=== PATIENT | male | born 1955 | race Caucasian/White ===

== ENCOUNTER 2021-07-29 14:31 | Outpatient (CLI) | payer OTHER, SELFPAY ==
--- NOTE | 2021-07-29 | ECG_ITS ---
Measurements Intervals [place] Rate: 60 P: 42 LA: 195 QRS: -26 QRSD: 187 T: 38 QT: 422 QTc: 422 Interpretive Statements SINUS RHYTHM RIGHT BUNDLE BRANCH BLOCK ABNORMAL ECG Electronically Signed On 07-29-2021 15:11:13 CDT by Marshal Murry D.O.
[2021-07-29 15:08] LABS: Albumin Level 4.1 g/dL (3.5-5.1); Estimated Glomerular Filt Rate > 60; Glucose 104 mg/dL (65-110)
[2021-07-29 15:11] LABS: Hemoglobin A1C 4.7 % (<5.7)
[2021-07-29 16:01] LABS: Urine Cotinine NEGATIVE
== END 2021-07-29 14:32 | disposition home or self-care (01) ==
LOC: ANHLAB 14:34
PROVIDERS: PCP Family Medicine Sports Medicine; Visit Provider Orthopaedic Surgery
DX: M17.12 Unilateral primary osteoarthritis, left knee (principal); Z01.818 Encounter for other preprocedural examination; I10 Essential (primary) hypertension; E78.5 Hyperlipidemia, unspecified; I45.10 Unspecified right bundle-branch block
CPT/HCPCS: 80307; 82040; 82565; 82947; 83036; 93005

== ENCOUNTER 2021-08-07 14:48 | Outpatient (CLI) | payer OTHER, SELFPAY ==
--- NOTE | ~2021-08-07 | CT_ITS ---
EXAMINATION: CT LE LT wo con DATE: 08/07/2021 15:25 INDICATION: Unilateral primary osteoarthritis of the left knee TECHNIQUE: High resolution computed tomography (CT) of the left lower limb from the hip through the f oot was performed without intravenous contrast. Additional sagittal and coronal reconstructions were performed. Automated exposure control and iterative reconstruction technique were employed. The dose- length product was 1950.71 mGy-cm. COMPARISON: None FINDINGS: Minimal left lateral patellar tilt and subluxation. Alignment is otherwise normal. No fracture. Chond rocalcinosis at the medial and lateral compartments of the knee including the menisci. Moderate joint space narrowing of the lateral compartment of the left knee and at the partially visualized medial c ompartment of the right knee although severity of joint space narrowing can be underestimated on nonw eightbearing imaging. There is additional mild joint space during at the medial compartment of the le ft knee and at the lateral aspect of the patellofemoral compartment. No left knee joint effusion. The re is an approximately 4 x 3 x 2 cm ganglion cyst in the recess posterior to the intercondylar notch. Additional chondrocalcinosis at the bilateral ankles. Mild osteoarthritis of the left hip and sacroil iac joints as well as at the left ankle and multiple joints in the bilateral feet and ankles. Heterot opic ossification along the bilateral medial malleoli which could be either enthesopathic or sequela of old deltoid ligament sprains. Additional small amount of enthesopathic ossification at the hamstri ng tendon origin at the left ischial tuberosity. Asymmetric moderate fatty atrophy of the left soleus muscle. Extensive scattered vascular calcifications throughout the arteries of the bilateral lower l imbs. Small fat-containing left inguinal hernia. No pathologically enlarged left pelvic or inguinal l ymphadenopathy. IMPRESSION: 1. Chondrocalcinosis and at least moderate lateral compartment predominant tricompartmental osteoarth ritis at the left knee although severity of joint space narrowing can be underestimated on nonweightb earing imaging. 2. Asymmetric moderate fatty atrophy of the left psoas muscle. Reviewed, dictated and finalized at location A. IMPRESSION: 1. Chondrocalcinosis and at least moderate lateral compartment predominant tric ompartmental osteoarthritis at the left knee although severity of joint space n arrowing can be underestimated on nonweightbearing imaging. 2. Asymmetric moderate fatty atrophy of the left psoas muscle.
== END 2021-08-07 14:49 | disposition home or self-care (01) ==
PROVIDERS: PCP Family Medicine Sports Medicine; Visit Provider Orthopaedic Surgery
DX: M17.12 Unilateral primary osteoarthritis, left knee (principal)
CPT/HCPCS: 73700

== ENCOUNTER 2021-10-09 11:49 | Outpatient (CLI) | payer OTHER, SELFPAY ==
[2021-10-09 12:59] LABS: Basophils Absolute Auto 0.1 K/mm3 (0.0-0.1); Basophils Percent Auto 0.8 % (0.2-1.2); Eosinophils Absolute Auto 0.1 K/mm3 (0-0.3); Eosinophils Percent Auto 2.4 % (0-4.4); Hematocrit 32.3 % (42.0-52.0); Hemoglobin 11.3 g/dL (14.0-18.0); Immature Granulocyte Absolute 0.02 K/mm3 (0.00-0.031); Immature Granulocyte Percent A 0.3 % (0-0.5); Lymphocytes Absolute Auto 1.28 K/mm3 (0.9-3.2); Lymphocytes Percent Auto 21.6 % (18.3-44.2); Mean Corpuscular Hemoglobin 35.6 pg (26-34); Mean Corpuscular Volume 101.9 fl (80-100); Mean Platelet Volume 8.6 fl (7.4-10.4); Monocytes Absolute Auto 0.7 K/mm3 (0.1-0.6); Monocytes Percent Auto 11.1 % (2.6-8.5); Neutrophils Absolute Auto 3.8 K/mm3 (1.3-6.7); Neutrophils Percent Auto 63.8 % (45.5-73.1); Platelet Count Result 242 k/mm3 (150-375); Red Blood Count 3.17 M/mm3 (4.6-6.20); Red Cell Distribution Width 11.7 % (11.5-14.5); White Blood Count 5.9 K/mm3 (4.5-10.0)
[2021-10-09 13:10] LABS: Albumin Level 4.5 g/dL (3.5-5.1)
[2021-10-09 13:13] LABS: Anion Gap 5 mmol/L (8-16); Blood Urea Nitrogen 15 mg/dL (9-20); Calcium 8.4 mg/dL (8.4-10.2); Carbon Dioxide 29 mmol/L (22-30); Chloride 91 mmol/L (98-107); Estimated Glomerular Filt Rate 51; Glucose 89 mg/dL (65-110); Potassium 4.9 mmol/L (3.4-5.0); Sodium 125 mmol/L (137-145)
[2021-10-09 13:32] LABS: Urine Cotinine NEGATIVE
[2021-10-09 14:06] LABS: Hemoglobin A1C 4.7 % (<5.7)
== END 2021-10-09 11:50 | disposition home or self-care (01) ==
PROVIDERS: Anesthesiology; PCP Family Medicine Sports Medicine; Visit Provider Orthopaedic Surgery
DX: M17.12 Unilateral primary osteoarthritis, left knee (principal); Z79.899 Other long term (current) drug therapy; Z01.818 Encounter for other preprocedural examination
CPT/HCPCS: 36415; 80048; 80307; 82040; 83036; 85025; 87081

== ENCOUNTER 2021-10-21 14:26 | Outpatient (CLI) | payer OTHER, SELFPAY ==
[2021-10-21 14:49] LABS: Sodium 125 mmol/L (137-145)
== END 2021-10-21 14:27 | disposition home or self-care (01) ==
PROVIDERS: Anesthesiology; PCP Family Medicine Sports Medicine; Visit Provider Orthopaedic Surgery
DX: E87.1 Hypo-osmolality and hyponatremia (principal); Z01.818 Encounter for other preprocedural examination
CPT/HCPCS: 36415; 84295

== ENCOUNTER 2021-10-29 00:04 | Day surgery (SDC) | payer OTHER, SELFPAY ==
--- NOTE | 2021-10-09 11:54 | PC.NURSE ---
Report to the Outpatient Waiting Room, entrance under the green pavilion located off [facility], at time _0600_ on date _10/29/21_. OR Time: _0730_. - You and your visitor will be asked a series of questions to screen for COVID 19 for your protection. - A mask is required within the hospital. - Only one visitor is allowed at this time. - The patient visitor is requested to leave or wait in car when not with patient. -PACK A SMALL OVERNIGHT BAG AND LEAVE IN THE CAR ALONG WITH YOUR WALKER, VISITING HOURS ARE 10AM-8PM, PARK IN FRONT PARKING LOT AND USE MAIN HOSPITAL ENTRANCE Patients may have clear liquids (water, carbonated beverages, clear teas, apple juice) until 3 hours prior to surgery ( 0430 AM) with a maximum of 20 ounces. - No food from midnight until time of surgery Take the following medications with a SIP of water the morning of surgery: _AMLODIPINE, METOPROLOL,_ Medications to discontinue per physician __DICLOFENAC 7 DAYS PRIOR TO SURGERY, Date to take last dose 10/21/21__ Please no make-up, nail new zealander, hairspray, perfume, deodorant, or body powder the day of surgery. No jewelry (including any body piercings) or valuables the day of surgery, leave them at home. Please take a shower or bath the night before, or the morning of, surgery with an antibacterial soap. Wear comfortable, loose fitting clothing. - Jewelry must be removed prior to entering the operating room. Rings and piercings that are not removed may be cut off. - The hospital will not accept responsibility for valuables. - Please leave all valuables, including medications, at home the day of surgery. If you are going home after surgery, a licensed fire truck driver must drive you home. - NO public transportation without another adult. - We recommend that an adult stay with you for 24 hours following discharge. - We also recommend that you do not drive, make important decision, drink alcoholic beverages, or take any drugs that were not prescribed by your health care provider for at least 24 hours after your discharge time. Follow any additional instructions given to you from your surgeon. If you or anyone in your household have experienced Covid symptoms in the past week, please notify your surgeon or the nurse liaison at the phone number below for possible testing. Instructions given to ___PT and asked if any additional questions and then verbalized understanding. Patient advised to call surgeon office or pre surgery nurse liaison [phone] if any additional questions.
[2021-10-09 12:13] VITALS: BP 178/80; PULSE 56; RESP 20; TEMP 37.3; O2SAT 100; BMI 22.9
[2021-10-29] VITALS (15 sets, daily range): BP systolic 127–180; BP diastolic 73–91; PULSE 54–72; RESP 12–17; TEMP 36.1–36.9; O2SAT 95–100
--- NOTE | ~2021-10-29 | XR_ITS ---
EXAMINATION: XR knee LT 2V DATE: 10/29/2021 10:11 INDICATION: Total left knee arthroplasty. Postop. TECHNIQUE: 2 views of left knee were obtained. COMPARISON: CT 08/07/2021 FINDINGS: There is a total left knee arthroplasty without patellar resurfacing in near-anatomic align ment. No fracture. There is gas in the knee joint and soft tissues, consistent with recent surgery. IMPRESSION: 1. Total left knee arthroplasty in near-anatomic alignment. Reviewed, dictated and finalized at location A.
[2021-10-29] MEDS: ACETAMINOPHEN 500 MG TABLET 1000 MG PO (06:30)
[2021-10-29] MEDS: LACTATED RINGERS 1,000 ML 30 ML IV CONT ×2 (06:39→09:58)
[2021-10-29] MEDS: TRANEXAMIC ACID 1,000MG/ISO100 1,000 MG/100 ML BAG 200 MG IVPB (07:03)
--- NOTE | 2021-10-29 07:08 | WPDANESEPPF ---
Anes - Initial Pre Proc Eval Procedure: Operation Date: 10/29/21 07:30 Proposed Procedures p Left Custom Total Knee Arthroplasty - Wally Lindquist MD Date/Time: 10/29/21 07:08 Surgeon: Wally Lindquist MD Pre Op Diagnosis: primary oa left knee Patient Data Age: 65 Gender: M Height: 1.83 m Weight: 75 kg Last Vital Signs Temp 36.7 C 10/29/21 06:46 Pulse 64 10/29/21 06:46 Resp 16 10/29/21 06:46 BP 172/76 H 10/29/21 06:46 Pulse Ox 100 10/29/21 06:46 O2 Del Method Room Air 10/29/21 06:46 Allergies Allergy/AdvReac Type Severity Reaction Status Date / Time No Known Allergies Allergy Verified 10/29/21 06:20 Home Medications Medication Instructions Recorded Confirmed Type amlodipine 5 mg tablet 5 mg PO QAM 07/02/21 10/29/21 History furosemide 20 mg tablet 10 mg PO QAM 07/02/21 10/29/21 History losartan 100 mg tablet 100 mg PO QAM 07/02/21 10/29/21 History metoprolol tartrate 50 mg tablet 50 mg PO QAM 07/02/21 10/29/21 History diclofenac sodium 75 mg 75 mg PO BID 10/09/21 10/29/21 History tablet,delayed release ezetimibe 10 mg tablet 10 mg PO QAM 10/09/21 10/29/21 History mupirocin 2 % topical ointment 1 applic topical TID #15 grams 10/16/21 Rx sulfamethoxazole 800 1 tablet PO Q12H #10 tabs 10/16/21 Rx mg-trimethoprim 160 mg tablet (Bactrim DS) Patient hx anesthesia problems: none Family hx anesthesia problems: none Results Review: All pre-operative results and documents have been reviewed as part of the pre-operative evaluation. [facility] Past Medical History Medical History Hyperlipidemia Hypertension Family History Family History Father Cancer Social History Social History Smoking status: Never smoker Second hand tobacco smoke exposure: No Additional smoking assessment comments: PT DENIES ALL FORMS OF TOBACCO USE Alcohol intake: current Drinks per week: 35 Alcohol use details: STATES 4-5 BEERS DAILY Substance use: never Substance use type: does not use Living arrangements: with family Spiritual care concerns: No Anes - Eval Final PreProcedure Day of Procedure 10/29/21 07:08 Patient weight: normal Heart: regular rate and rhythm Lungs: clear to auscultation Airway: Mallampati scale class II Neurological: alert and oriented Last oral intake: >/= 8 hours ASA classification: II Emergent: no Anesthetic plan: proceed Anesthesia type and monitoring: general LMA and standard monitoring Results Review: All pre-operative results and documents have been reviewed as part of the pre-operative evaluation. Informed Consent: The patient's anesthetic plan and its attendant risks and benefits were discussed with the patient/family/POA. Questions were solicited and answers provided to the satisfaction of the patient/family/POA.
--- NOTE | 2021-10-29 07:22 | WPDHPUPDATE1 ---
History and Physical Update Update Date/Time: 10/29/21 07:22 History and Physical has been reviewed, including an updated exam of the patient. There are NO changes in the patient's condition. Risks, benefits, and alternatives have been discussed and questions answered. Patient agrees to proceed with procedure.
--- NOTE | 2021-10-29 07:28 | WPDANESPNB ---
Anes - Peripheral Nerve Block Date/Time: 10/29/21 07:28 I have discussed with the patient/family/POA the placement of a peripheral nerve block for post-operative pain management, including associated risks, benefits, complications, and side effects. Alternative methods of post-operative analgesia were detailed. Questions were solicited and answers provided to the satisfaction of the patient/family/POA. Time-Out: A pre-procedural Time-Out was completed immediately before starting the procedure and confirmed: Patient Identification, Site, Procedure, Patient Position and the Availability of Requisite Equipment. Clinical Indications: Acute post-operative pain management requested by the operative surgeon. Nerve Block Insertion Note Anes-nerve block: adductor canal left Patient position: supine Skin prep: chlorhexidine Needle: 22 gauge, stimulating, insulated echogenic needle. Needle length: 80 mm Technique: ultrasound Injectate: bupivacaine 0.5% with epi 5 mcg/ml (30ml no epi) and dexamethasone (mg) (4) Observations: tolerated well Complications: none Procedure start time:: 714 Procedure end time:: 722
[2021-10-29] MEDS: ceFAZolin 2 GM/D5W 50 ML 2 GM/50 ML BAG IVPB ×3 (07:29→23:32)
--- NOTE | 2021-10-29 10:14 | P.OP_ITS ---
Procedure Note - Detailed Date of Procedure 10/29/21 Pre-op Diagnosis primary oa left knee Post-op Diagnosis Same Procedure Performed Total knee arthroplasty, left. Surgeon Wally Lindquist MD [employer] Ad[employer] Representative Moon Kidd PA-C Anesthesia General and Regional (Subsartorial block.) Findings Custom TKA. Excellent bone quality. No releases required. Description of Procedure Preoperative antibiotics were given. The limb was prepped and draped in the usual sterile fashion with a well-padded tourniquet high on the thigh. The limb was exsanguinated and the tourniquet inflated to 300 mmHg during exposure and cementation. A longitudinal incision was created just medial to the patella. A trivector approach to the knee was performed. Arthrotomy was taken down through the joint capsule. No significant releases were initially taken. The femur was exposed and the F1 jig was applied. The coring tool was used to remove the cartilage for the F2 jig to sit flush with the bone. The jig was pinned and the distal cut carefully taken. Caliper measurements confirmed appropriate bony resections according to the preoperative templated plan. The F4 cutting jig for the femur was applied, at the standard rotation. The AP and anterior chamfer cuts were taken. The F5 jig was applied and the posterior chamfer cuts were taken. The tibia was prepared using the T1 jig, after removing cartilage for the jig contact points. Proper alignment was checked with the alignment warner. The tibia was cut using the T1u guide. Gap balancing was performed. Gap measurements were taken and the knee was trialed. Excellent alignment and soft tissue balancing was confirmed. The posterior cruciate ligament was recessed along the proximal tibia. The patella was denervated. Meniscal remnants were removed. The trial components were assembled. Excellent range of motion and proper soft tissue balancing were confirmed throughout the full range of motion. Patellar tracking was excellent. The knee was copiously irrigated periodically throughout the procedure. The real implants were cemented into position. Excess cement was carefully removed. The wound was closed in layers with interrupted #1 Vicryl suture, 2-0 strata fix suture, 0 strata fix suture, 2-0 strata fix suture. Steri-Strips placed on the skin with the knee flexed. Sterile bulky dressing applied. The patient was brought to the recovery room in stable condition. There were no complications. Physician life science research assistant, Moon Kidd PA-C, required for surgery; including patient positioning, draping, tissue retraction, maintaining instrument pos ition, cement removal, wound closure, and dressing placement. Implants Conformis Custom total knee arthroplasty. Cemented. Cruciate retaining. 6A inser t. Estimated Blood Loss -100.0 Drains No Complications No immediate complications Condition Stable Disposition PACU [facility] Billing Surgery - Charge Forward: Surgery Billing
[2021-10-29] MEDS: fentaNYL CITRATE INJ (*CRX) 100 MCG/2 ML VIAL 25 MCG IV PUSH ×8 (10:24→11:03)
[2021-10-29] MEDS: HYDROmorphone HCL INJ (*CRX) 1 MG/ML SYR IV PUSH (11:06)
--- NOTE | 2021-10-29 11:39 | ADMGEN ---
This patient, Triston Ivan, was admitted to -. Patient/family oriented to hospital policies and general routines including ID bracelet, bed and alarms, visiting hours, pain management, procedures, bathroom and other care routines, personal items, smoking policy, room service/diet, and visiting hours. Information on how to activate the Rapid Response Team has been discussed. Patient/Family are encouraged to report perceived risks to care and to ask questions if they do not understand what they are told or what they should do. Report received from INDIRA Bullard
[2021-10-29] MEDS: oxyCODONE HCL (*CRX) 5 MG TAB IR 10 MG PO ×2 (12:40→23:32)
[2021-10-29] MEDS: ASPIRIN 81 MG ENTERIC TABLET PO (16:18)
[2021-10-29] MEDS: DICLOFENAC SOD 75 MG TABLET.EC PO (16:18)
[2021-10-29] MEDS: SENNA/DOCUSATE SODIUM TABLET 2 TAB PO (16:18)
[2021-10-30 03:25] VITALS: BP 157/90; PULSE 57; RESP 16; TEMP 36.5; O2SAT 100
[2021-10-30] MEDS: ceFAZolin 2 GM/D5W 50 ML 2 GM/50 ML BAG IVPB (06:00)
--- NOTE | 2021-10-30 07:52 | WPDANESPN ---
Anes - Prog Note Post-Op Date/Time: 10/30/21 07:52 Cardiovascular status: normal Respiratory status: normal Airway patency: baseline Mental status: baseline Post-Op hydration status: normal Vital Signs: Last Vital Signs Temp 97.7 F 10/30/21 03:25 Pulse 57 L 10/30/21 03:25 Resp 16 10/30/21 03:25 BP 157/90 H 10/30/21 03:25 Pulse Ox 100 10/30/21 03:25 O2 Del Method Room Air 10/29/21 13:02 O2 Flow Rate 6 10/29/21 10:25 Pain Score (VAS): 05/02 I/O: Intake & Output 10/29/21 10/29/21 10/30/21 15:59 23:59 07:59 Intake Total 773 085 5073 Output Total 0 Balance [phone] Post-procedural complaints: none Patient Feedback: Patient satisfied with anesthetic care.
[2021-10-30 09:16] VITALS: BP 156/80; PULSE 59; RESP 18; TEMP 36.5; O2SAT 100
[2021-10-30] MEDS: polyethylene glycoL 3350 17 GM POWD.PACK PO (09:26)
[2021-10-30 09:27] VITALS: PULSE 59
[2021-10-30] MEDS: ASPIRIN 81 MG ENTERIC TABLET PO (09:27)
[2021-10-30] MEDS: amLODIPine BESYLATE 5 MG TABLET PO (09:27)
[2021-10-30] MEDS: DICLOFENAC SOD 75 MG TABLET.EC PO (09:27)
[2021-10-30] MEDS: predniSONE 5 MG TABLET PO (09:27)
[2021-10-30] MEDS: METOPROLOL TARTRATE 50 MG TAB PO (09:27)
[2021-10-30] MEDS: SENNA/DOCUSATE SODIUM TABLET 2 TAB PO (09:30)
[2021-10-30] MEDS: FAMOTIDINE 20 MG TABLET PO (09:30)
[2021-10-30] MEDS: LOSARTAN POTASSIUM 100 MG TABLET PO (09:30)
[2021-10-30] MEDS: EZETIMIBE 10 MG TABLET PO (09:32)
[2021-10-30] MEDS: FUROSEMIDE 10 MG TABLET PO (09:32)
[2021-10-30] MEDS: oxyCODONE HCL (*CRX) 5 MG TAB IR PO (09:43)
--- NOTE | 2021-10-30 12:00 | P.DS_ITS ---
DS: Admitting Diagnosis Discharge Date 10/30/21 Admitting Diagnosis OA knee Left DS: Discharge Diagnosis Discharge Diagnosis (1) Status post total left knee replacement: Code(s): Z96.652 - Presence of left artificial knee joint Status: Acute Assessment and Plan: Postop day 1: Left total knee arthroplasty. Patient tolerated procedure well. No complications. Pain manageable with pain medication. No numbness or tingling. We had a lengthy discussion regarding postoperative wound care, limitations, expectations, and exercises. Patient shows good understanding. He has had initial physical therapy and is tolerating it well. DVT prophylaxis: 81 mg baby aspirin b.i.d. for 14 days. Pain medication: Percocet. diclofenac. prednisone. Patient has followup appointment with Dr. Lindquist in 3 weeks. DS: Summary Hospital Course Reason for hospitalization: Total knee arthroplasty Hospital Course: Patient tolerated procedure well. Has had initial PT/OT. Status at Discharge Functional status at discharge: uses cane/walker Overall status at discharge: patient is progressing back to baseline Time Spent with Patient Time attestation: Total time spent providing and/or coordinating discharge services: Exam Narrative: 65-year-old male. Resting comfortably in chair. Alert and oriented x3. No acute distress. Wearing compression socks bilaterally. Dressing intact without drainage. Moderate swelling. No ecchymosis. No erythema. No hematoma. Range of motion limited due to pain. Calf nontender. Neurologic status intact. No varicosities. Distal pulses palpable. Discharge Plan Discharge Patient Disposition: Home, Self-Care Discharge Instructions: see green instruction sheets Stand Alone Forms: General Discharge Instructions Follow-up/Referrals: Moon Kidd PA [Physician Client Onboarding Analyst] - Discharge Medications: New aspirin 81 mg tablet,delayed release (DR/EC) 81 mg PO BID 14 Days Qty: 28 0RF prednisone 5 mg tablet 5 mg PO DAILY 21 Days Qty: 21 0RF oxycodone-acetaminophen 5-325 mg tablet 1 - 2 tablet PO Q4-6H MDD 6 PRN (Reason: pain) Qty: 30 0RF Continued losartan 100 mg tablet 100 mg PO QAM furosemide 20 mg tablet 10 mg PO QAM amlodipine 5 mg tablet 5 mg PO QAM metoprolol tartrate 50 mg tablet 50 mg PO QAM diclofenac sodium 75 mg tablet,delayed release (DR/EC) 75 mg PO BID ezetimibe 10 mg Tablet 10 mg PO QAM mupirocin 2 % ointment 1 applic topical TID Qty: 15 0RF Rx Instructions: Instruct patient to start using medication on 10/24/21. Thank you.
== END 2021-10-30 12:45 | disposition home or self-care (01) ==
LOC: ANHSURGERY 07:24 → ANH2MED 11:49
PROVIDERS: PCP Family Medicine Sports Medicine; Visit Provider Orthopaedic Surgery
PROC: (CPT 27447; principal; 2021-10-29 07:30)
DX: M17.12 Unilateral primary osteoarthritis, left knee (principal); G89.18 Other acute postprocedural pain; I10 Essential (primary) hypertension; E78.5 Hyperlipidemia, unspecified
CPT/HCPCS: 27447; 64447; 36415; 73560; 84295; 86850; 86900; 86901; 97110; 97116; 97161; 97165; 97530; 97535; A9270; C1713; C1776; J0131; J0171; J0690; J1100; J1170; J1885; J2250; J2270; J2370; J2405; J2704; J2795; J3010; J7120; J7512

== ENCOUNTER 2021-12-08 17:00 | Observation (INO) | payer OTHER, SELFPAY ==
[2021-12-08] VITALS (11 sets, daily range): BP systolic 154–182; BP diastolic 81–101; PULSE 78–106; RESP 16–21; TEMP 36.4; O2SAT 93–100; BMI 24.0
--- NOTE | ~2021-12-08 | XR_ITS ---
EXAM: XR shoulder LT min 2V DATE: 12/08/2021 17:51 HISTORY: pain . COMPARISON: None available. FINDINGS: Decreased mineralization. No fracture or dislocation. No lytic or blastic lesion. Joint sp aces are maintained. No erosion or periosteal change. Soft tissues within normal limits. IMPRESSION: No acute osseous finding in the left shoulder. Reviewed, dictated and finalized at location K.
--- NOTE | ~2021-12-08 | US_ITS ---
EXAMINATION:US venous doppler LE LT INDICATION:Left lower extremity edema status post recent surgery TECHNIQUE: Multiple grayscale, color flow and Doppler images of the left lower extremity deep venous systems were obtained and reviewed. COMPARISON:No prior studies for comparison. FINDINGS: The common femoral, superficial femoral and popliteal veins demonstrate normal respiratory variation, augmentation and compressibility. Color flow is also seen within the posterior tibial, pe roneal, greater saphenous and profunda veins. IMPRESSION: 1: No lower extremity deep venous thrombosis. Reviewed, dictated and finalized at location A.
--- NOTE | ~2021-12-08 | CT_ITS ---
EXAMINATION: CT brain wo con DATE: 12/08/2021 18:21 INDICATION: seizure . TECHNIQUE: Computed tomography (CT) of the head was performed without intravenous contrast. The mA wa s adjusted according to patient size. Iterative reconstruction technique was employed. The dose-lengt h product was 605.33 mGy-cm. COMPARISON: 08/13/2018 FINDINGS: No acute intracranial hemorrhage or extra-axial fluid collection. No hydrocephalus, mass, or herniation. No acute ischemic infarct. Unremarkable dural venous sinus attenuation. No acute osseous abnormality. Bilateral maxillary mucosal thickening. Trace bilateral mastoid effusions. Moderate atrophy and chronic white matter change. Atherosclerotic intracranial calcification. Bilater al lens replacements. IMPRESSION: No acute intracranial process. Reviewed, dictated and finalized at location K.
--- NOTE | ~2021-12-08 | XR_ITS ---
EXAMINATION: XR chest 1V portable Exam Date/Time: 12/08/2021 17:40 CDT HISTORY: seizure Comparison: 08/13/2018. RESULT: Lines, tubes, and devices: None. Lungs and pleura: Clear. Cardiomediastinal silhouette: Stable. Other: No acute osseous or upper abdominal finding. IMPRESSION: No acute cardiopulmonary process. Reviewed, dictated and finalized at location K.
--- NOTE | ~2021-12-08 | MR_ITS ---
EXAMINATION: MR brain/brain stem wo/w con DATE: 12/09/2021 11:39 INDICATION: Seizure. TECHNIQUE: Magnetic resonance imaging (MRI) of the brain and brainstem was performed without and with 16 mL MultiHance intravenous contrast. COMPARISON: Head CT 12/08/2021 FINDINGS: There are scattered areas of nonspecific increased T2-weighted signal intensity in the cere bral white matter. There is no intracranial hemorrhage, acute infarction, or abnormal intracranial ma ss lesion. The ventricles are normal in size. There are small bilateral mastoid effusions. There is m ild mucosal thickening in the paranasal sinuses. There are likely changes of ocular lens replacement surgeries. IMPRESSION: 1. Moderate nonspecific cerebral white matter disease, which likely represents chronic small vessel i schemic disease. Reviewed, dictated and finalized at location A. IMPRESSION: 1. Moderate nonspecific cerebral white matter disease, which likely represents chronic small vessel ischemic disease.
--- NOTE | 2021-12-08 17:11 | ECG_ITS ---
Measurements Intervals [place] Rate: 88 P: 26 MS: 208 QRS: -38 QRSD: 173 T: 26 QT: 387 QTc: 469 Interpretive Statements SINUS RHYTHM ATRIAL PREMATURE COMPLEXES LEFT AXIS DEVIATION RIGHT BUNDLE BRANCH BLOCK BASELINE ARTIFACT- I, II, AVR, AVF ABNORMAL ECG COMPARED TO ECG 07/29/2021 15:08:44 LEFT-AXIS DEVIATION NOW PRESENT Electronically Signed On 12-08-2021 21:47:35 CDT by Marshal Murry D.O.
--- NOTE | 2021-12-08 17:21 | ED.SEIZURE ---
HPI - Seizure General Chief Complaint: Seizure <Ann Strauss MD - Last Filed: 12/08/21 19:06> Stated Complaint: Seizure <Ann Strauss MD - Last Filed: 12/08/21 19:06> Time Seen by Provider: 12/08/21 17:09 <Ann Strauss MD - Last Filed: 12/08/21 19:06> Source: patient and family <Ann Strauss MD - Last Filed: 12/08/21 19:06> Mode of arrival: EMS <Ann Strauss MD - Last Filed: 12/08/21 19:06> History of Present Illness HPI Narrative: This is a 65 year old male with history of hypertension and hyperlipidemia who presents for evaluation of new onset seizure. Patient states he was sitting outside and that is all he remembers. His family states patient was seen sitting up and he started foaming at the mouth and seizing. It is reported seizure last approximately 2 minutes. They laid patient on the ground and he was confused until he arrived at ER. Patient did bite his tongue , and he is complaining of left shoulder pain. Patient had left knee replacement performed 1 month ago and he has been doing well. No seizure history. <Ann Strauss MD - Last Filed: 12/08/21 19:06> Related Data Home Medications: Home Medications Medication Instructions Recorded Confirmed amlodipine 5 mg tablet 5 mg PO QAM 07/02/21 11/20/21 furosemide 20 mg tablet 10 mg PO QAM 07/02/21 11/20/21 losartan 100 mg tablet 100 mg PO QAM 07/02/21 11/20/21 metoprolol tartrate 50 mg tablet 50 mg PO QAM 07/02/21 11/20/21 diclofenac sodium 75 mg 75 mg PO BID 10/09/21 11/20/21 tablet,delayed release ezetimibe 10 mg tablet 10 mg PO QAM 10/09/21 11/20/21 <Ann Strauss MD - Last Filed: 12/08/21 19:06> Allergies/Adverse Reactions: Allergies Allergy/AdvReac Type Severity Reaction Status Date / Time No Known Allergies Allergy Verified 12/08/21 17:10 <Ann Strauss MD - Last Filed: 12/08/21 19:06> Review of Systems Review of Systems: All systems reviewed & are unremarkable except as noted in HPI and below <Ann Strauss MD - Last Filed: 12/08/21 19:06> Constitutional: Constitutional: Denies chills, Denies fatigue and Denies fever(s) <Ann Strauss MD - Last Filed: 12/08/21 19:06> Cardiovascular: Cardiovascular: Denies chest pain and Denies rapid heart rate <Ann Strauss MD - Last Filed: 12/08/21 19:06> Respiratory: Respiratory: Denies chest congestion and Denies cough <Ann Strauss MD - Last Filed: 12/08/21 19:06> Gastrointestinal: Gastrointestinal: Denies abdominal pain, Denies nausea and Denies vomiting <Ann Strauss MD - Last Filed: 12/08/21 19:06> Neurologic: Denies headache(s) <Ann Strauss MD - Last Filed: 12/08/21 19:06> [facility] Past Medical History Medical History: Medical History (Updated 12/08/21 @ 19:50 by Merlene Moore PA-C) Alcohol abuse Chronic hyponatremia Gout Hyperlipidemia Hypertension <Ann Strauss MD - Last Filed: 12/08/21 19:06> Surgical History Surgical History: Surgical History (Updated 12/08/21 @ 19:50 by Merlene Moore PA-C) History of arthroplasty of left knee History of cardiac catheterization History of colonoscopy History of oral surgery Status post total left knee replacement <Ann Strauss MD - Last Filed: 12/08/21 19:06> Family History Family History: Family History Father Cancer <Ann Strauss MD - Last Filed: 12/08/21 19:06> Social History Social History: Social History Smoking status: Never smoker Smokeless tobacco user: chewing tobacco Second hand tobacco smoke exposure: No Additional smoking assessment comments: PT DENIES ALL FORMS OF TOBACCO USE Alcohol intake: current Drinks per week: 30 Alcohol use details: STATES 4-5 BEERS DAILY Substance use: never Substance use type: does not use Spirit
[2021-12-08] MEDS: SODIUM CHLORIDE 0.9% IV 1,000 ML 999 ML IV CONT (17:50)
[2021-12-08 17:52] LABS: Basophils Absolute Auto 0.1 K/mm3 (0.0-0.1); Basophils Percent Auto 0.8 % (0.2-1.2); Eosinophils Absolute Auto 0.3 K/mm3 (0-0.3); Eosinophils Percent Auto 3.2 % (0-4.4); Hematocrit 31.8 % (42.0-52.0); Hemoglobin 11.2 g/dL (14.0-18.0); Immature Granulocyte Percent A 1.3 % (0-0.5); Lymphocytes Absolute Auto 1.85 K/mm3 (0.9-3.2); Lymphocytes Percent Auto 23.5 % (18.3-44.2); Mean Corpuscular HGB Conc 35.2 g/dl (32-36); Mean Corpuscular Hemoglobin 36.2 pg (26-34); Mean Corpuscular Volume 102.9 fl (80-100); Mean Platelet Volume 8.8 fl (7.4-10.4); Monocytes Absolute Auto 0.9 K/mm3 (0.1-0.6); Monocytes Percent Auto 11.9 % (2.6-8.5); Neutrophils Absolute Auto 4.7 K/mm3 (1.3-6.7); Neutrophils Percent Auto 59.3 % (45.5-73.1); Platelet Count Result 228 k/mm3 (150-375); Red Blood Count 3.09 M/mm3 (4.6-6.20); Red Cell Distribution Width 11.9 % (11.5-14.5); White Blood Count 7.9 K/mm3 (4.5-10.0)
[2021-12-08 18:02] LABS: Prothrombin Time 12.3 Seconds (11.1-14.7)
[2021-12-08 18:03] LABS: Ethanol 24 mg/dL (<10); Partial Thromboplastin Time 29.1 SECONDS (22.3-36.8)
[2021-12-08 18:22] LABS: Appearance Urine Clear (Clear); Bilirubin Urine Negative (Negative); Blood Urine Negative (Negative); Color Urine Yellow (Yellow); Glucose Urine UA Negative (Negative); Ketones Urine Trace mg/dL (Negative); Leukocyte Esterase Ur Negative LEU/UL (Negative); Nitrate Urine Negative (Negative); Protein Urine Negative (Negative); Urobilinogen Urine 0.2 mg/dL (<2.0)
[2021-12-08 18:25] LABS: Alanine Aminotransferase 24 U/L (6-50); Albumin Level 4.2 g/dL (3.5-5.1); Alkaline Phosphatase 128 U/L (38-126); Anion Gap 18 mmol/L (8-16); Aspartate Amino Transferase 43 U/L (17-59); Bilirubin,Total 0.7 mg/dL (0.2-1.3); Blood Urea Nitrogen 12 mg/dL (9-20); Calcium 8.2 mg/dL (8.4-10.2); Carbon Dioxide 18 mmol/L (22-30); Chloride 87 mmol/L (98-107); Creatine Kinase 108 U/L (55-170); Estimated Glomerular Filt Rate 55; Glucose 111 mg/dL (65-110); Magnesium 1.6 mg/dL (1.6-2.3); Potassium 3.4 mmol/L (3.4-5.0); Sodium 123 mmol/L (137-145)
[2021-12-08 18:26] LABS: Bacteria Urine Trace /hpf; RBC Urine 0-2 /hpf (0-2); Squamous Epithelial Cell Urine Rare /hpf (Few); WBC Urine 0-3 /hpf
[2021-12-08 18:27] LABS: SARS-CoV-2 RNA PCR Negative
[2021-12-08 18:33] LABS: Add Urine Microscopic? YES
[2021-12-08 18:37] LABS: Troponin I < 0.012 ng/mL (0.000-0.034)
[2021-12-08 18:37] LABS: Amphetamine Screen Urine Negative (Negative); Barbiturate Screen Urine Negative (Negative); Benzodiazepines Screen Urine Negative (Negative); Cannabinoid Screen Urine Negative (Negative); Cocaine Screen Urine Negative (Negative); Methadone Screen Urine Negative (Negative); Opiate Screen Urine Negative (Negative); Phencyclidine Screen Urine Negative (Negative)
--- NOTE | 2021-12-08 19:21 | ED.GENADULT ---
HPI - General Adult General Chief complaint: Seizure Stated complaint: Seizure Time Seen by Provider: 12/08/21 17:09 Source: patient and family Mode of arrival: EMS Related Data Home Medications Medication Instructions Recorded Confirmed amlodipine 5 mg tablet 5 mg PO QAM 07/02/21 11/20/21 furosemide 20 mg tablet 10 mg PO QAM 07/02/21 11/20/21 losartan 100 mg tablet 100 mg PO QAM 07/02/21 11/20/21 metoprolol tartrate 50 mg tablet 50 mg PO QAM 07/02/21 11/20/21 diclofenac sodium 75 mg 75 mg PO BID 10/09/21 11/20/21 tablet,delayed release ezetimibe 10 mg tablet 10 mg PO QAM 10/09/21 11/20/21 Allergies Allergy/AdvReac Type Severity Reaction Status Date / Time No Known Allergies Allergy Verified 12/08/21 17:10 [facility] Past Medical History Medical History (Updated 12/08/21 @ 19:06 by Ann Strauss MD) Hyperlipidemia Hypertension Surgical History Surgical History (Updated 12/08/21 @ 17:29 by Ann Strauss MD) Status post total left knee replacement Family History Family History Father Cancer Social History Social History Smoking status: Never smoker Smokeless tobacco user: chewing tobacco Second hand tobacco smoke exposure: No Additional smoking assessment comments: PT DENIES ALL FORMS OF TOBACCO USE Alcohol intake: current Drinks per week: 30 Alcohol use details: STATES 4-5 BEERS DAILY Substance use: never Substance use type: does not use Spiritual care concerns: No Course Vital Signs Vital signs: Vital Signs Pulse Rate 106 H 12/08/21 17:11 Respiratory Rate 17 12/08/21 17:11 Blood Pressure 164/101 H 12/08/21 17:11 Pulse Oximetry 100 12/08/21 17:11 Pulse Rate 102 H 12/08/21 17:16 Respiratory Rate 16 12/08/21 17:16 Blood Pressure 154/81 H 12/08/21 17:16 Pulse Oximetry 98 12/08/21 17:29 Oxygen Delivery Room Air 12/08/21 17:29 Medical Decision Making Vital Signs Vital Signs: Vital Signs Pulse Rate 106 H 12/08/21 17:11 Respiratory Rate 17 12/08/21 17:11 Blood Pressure 164/101 H 12/08/21 17:11 Pulse Oximetry 100 12/08/21 17:11 Pulse Rate 102 H 12/08/21 17:16 Respiratory Rate 16 12/08/21 17:16 Blood Pressure 154/81 H 12/08/21 17:16 Pulse Oximetry 98 12/08/21 17:29 Oxygen Delivery Room Air 12/08/21 17:29 Lab Data Result diagrams: 12/08/21 17:40 12/08/21 17:40 Labs: Lab Results 12/08/21 12/08/21 12/08/21 Range/Units 17:40 17:40 17:40 WBC 7.9 (4.5-10.0) K/mm3 RBC 3.09 L (4.6-6.20) M/mm3 Hgb 11.2 L (14.0-18.0) g/dL Hct 31.8 L (42.0-52.0) % MCV 102.9 H (80-100) fl MCH 36.2 H (26-34) pg MCHC 35.2 (32-36) g/dl RDW 11.9 (11.5-14.5) % Plt Count 228 (150-375) k/mm3 MPV 8.8 (7.4-10.4) fl Immature Gran % (Auto) 1.3 H (0-0.5) % Neut % (Auto) 59.3 (45.5-73.1) % Lymph % (Auto) 23.5 (18.3-44.2) % [place] % (Auto) 11.9 H (2.6-8.5) % Eos % (Auto) 3.2 (0-4.4) % Baso % (Auto) 0.8 (0.2-1.2) % Lymph # (Auto) 1.85 (0.9-3.2) K/mm3 [place] # (Auto) 0.9 H (0.1-0.6) K/mm3 Eos # (Auto) 0.3 (0-0.3) K/mm3 Baso # (Auto) 0.1 (0.0-0.1) K/mm3 Abs Immat Gran (auto) 0.10 H (0.00-0.031) K/mm3 Absolute Neuts (auto) 4.7 (1.3-6.7) K/mm3 Absolute Nucleated RBC 0.0 (0.0-0.012) K/mm3 Nucleated RBC % 0.0 (0.0-0.2) % PT 12.3 (11.1-14.7) Seconds INR 1.0 APTT 29.1 (22.3-36.8) SECONDS Sodium 123 L (137-145) mmol/L Potassium 3.4 (3.4-5.0) mmol/L Chloride 87 L (98-107) mmol/L Carbon Dioxide 18 L (22-30) mmol/L Anion Gap 18 H (8-16) mmol/L BUN 12 (9-20) mg/dL Creatinine 1.30 (0.7-1.3) mg/dL Estim Creat Clear Calc Not Reportable Estimated GFR 55 L (59 - ) Glucose 111 H (65-110) mg/dL Calcium 8.2 L (8.4-10.2)
[2021-12-08] MEDS: ACETAMINOPHEN 500 MG TABLET 1000 MG PO (19:44)
[2021-12-08] MEDS: SODIUM CHLORIDE 0.9% IV 1,000 ML 125 ML IV CONT (19:44)
--- NOTE | 2021-12-08 19:45 | PM.IMHP ---
H&P: HPI History of Present Illness Date/Time: 12/08/21 19:45 Chief Complaint: Suspected seizure. Narrative: This is a pleasant 65-year-old male with history of alcohol abuse, hypertension, and hyperlipidemia presented to the emergency department via EMS from home for evaluation after a suspected seizure. The patient reports that he was sitting outside and that is really all that he remembers. Family members report that he was sitting in a chair when he started to foam at the mouth followed by seizure-like activity which lasted for about 2 minutes. He seemed to be postictal initially and there was evidence of tongue bite however there was no mention of incontinence. On arrival to the emergency department he was complaining of pain in the left shoulder and diffuse muscle aches. CT of the head, shoulder x-ray, and chest x-ray were reviewed and they were unremarkable. Pertinent labs include a sodium of 123, potassium 3.4, chloride 87, carbon dioxide 18, anion gap 18, and CK 108. His urine drug screen was negative. Alcohol level was 24. He has since been admitted overnight for observation, MRI, and EEG in a.m.. At the time my evaluation he is alert and oriented and has no specific complaints. Review of Systems Review of Systems: Twelve systems were reviewed. He has no history of seizure. He has not been started on any recent medications. He drinks at least 6 beers a night and he has not been without alcohol recently. He does not sleep well, is up 4 to 5 times each night to urinate. He denies orthopnea, paroxysmal nocturnal dyspnea, and significant daytime somnolence however. He has chronic hyponatremia though he has never been given an explanation for this. He has never had a previous seizure. He denies alcohol withdrawal symptoms. [facility] Past Medical History Medical History (Updated 12/08/21 @ 19:54 by Merlene Moore PA-C) Alcohol abuse Chronic hyponatremia Gout Hyperlipidemia Hypertension Surgical History Surgical History (Updated 12/08/21 @ 19:50 by Merlene Moore PA-C) History of arthroplasty of left knee History of cardiac catheterization History of colonoscopy History of oral surgery Status post total left knee replacement Family History Family History Father Skin cancer Hypertension Mother Acute myocardial infarction Cerebrovascular accident Heart disease Social History Social History (Updated 12/09/21 @ 03:40 by Merlene Moore PA-C) Social History: Surrogate medical decision maker: Janell Ivan, spouse. Code status: Full code. Smoking status: Never smoker Smokeless tobacco user: chewing tobacco Second hand tobacco smoke exposure: No Alcohol intake: current Drinks per week: 56 Alcohol use details: Around 8 beers a day. Substance use: never Substance use type: does not use Additional living arrangements comments: The patient lives with his in [place]. 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 Spiritual care concerns: No Meds Home Medications and Allergies Home Medications Medication Instructions Recorded Confirmed Type amlodipine 5 mg tablet 5 mg PO QAM 07/02/21 12/08/21 History furosemide 20 mg tablet 20 mg PO QAM 07/02/21 12/08/21 History losartan 100 mg tablet 100 mg PO QAM 07/02/21 12/08/21 History diclofenac sodium 75 mg 75 mg PO BID 10/09/21 12/08/21 History tablet,delayed release ezetimibe 10 mg tablet 10 mg PO QAM 10/09/21 12/08/21 History silver sulfadiazine 1 % topical 1 applic topical DAILY #50 grams 12/06/21 12/08/21 Rx cream (Silvadene) metoprolol succinate 50 mg 50 mg PO DAILY 12/09/21 12/09/21 History tablet,extended release 24 hr Allergies Allergy/AdvReac Type Severity Reaction Status Date / Time No Known Allergies Allergy Verified 12/08/21 17:10 Vital Signs Vital Signs - 24 hr 12/08/21 17:28 12/08/21
--- NOTE | 2021-12-08 21:12 | ADMGEN ---
This patient, Triston Ivan, was admitted to [facility] Surg Room 305-02. Patient/family oriented to hospital policies and general routines including ID bracelet, bed and alarms, visiting hours, pain management, procedures, bathroom and other care routines, personal items, smoking policy, room service/diet, and visiting hours. Information on how to activate the Rapid Response Team has been discussed. Patient/Family are encouraged to report perceived risks to care and to ask questions if they do not understand what they are told or what they should do.
[2021-12-09] VITALS (9 sets, daily range): BP systolic 143–189; BP diastolic 79–88; PULSE 15–73; RESP 14–18; TEMP 35.9–36.8; O2SAT 99–100
[2021-12-09 02:55] LABS: Anion Gap 7 mmol/L (8-16); Blood Urea Nitrogen 7 mg/dL (9-20); Calcium 8.2 mg/dL (8.4-10.2); Carbon Dioxide 23 mmol/L (22-30); Chloride 96 mmol/L (98-107); Estimated CRCL calculation 78 ml/min; Estimated Glomerular Filt Rate > 60; Glucose 109 mg/dL (65-110); Magnesium 1.7 mg/dL (1.6-2.3); Potassium 4.2 mmol/L (3.4-5.0); Sodium 126 mmol/L (137-145)
[2021-12-09 03:04] LABS: Iron 79 ug/dL (49-181)
[2021-12-09 03:13] LABS: Percent Iron Saturation 35 % (20-50)
[2021-12-09 04:02] LABS: Free T4 Free Thyroxine Reflex 1.17 ng/dL (0.78-2.19)
[2021-12-09 04:55] LABS: Total Triiodothyronine (T3) 1.83 NG/ML (0.97-1.69)
[2021-12-09] MEDS: SODIUM CHLORIDE 0.9% IV 1,000 ML 80 ML IV CONT ×2 (06:03→20:48)
[2021-12-09] MEDS: METOPROLOL SUCCINATE EXT REL 50 MG TABCR PO (08:56)
[2021-12-09 09:51] LABS: Creatinine Urine 38.6 mg/dL
[2021-12-09 09:52] LABS: Sodium Urine Random 94 meq/L
[2021-12-09] MEDS: amLODIPine BESYLATE 5 MG TABLET PO ×2 (12:51→20:45)
[2021-12-09] MEDS: EZETIMIBE 10 MG TABLET PO (12:51)
[2021-12-09] MEDS: DICLOFENAC SOD 75 MG TABLET.EC PO ×2 (12:51→17:09)
[2021-12-09] MEDS: LOSARTAN POTASSIUM 100 MG TABLET PO (12:51)
[2021-12-09] MEDS: SILVER SULFADIAZINE 1% CR 50 GM JAR (*BKC) 1 APPLIC TOPICAL (14:56)
[2021-12-09] MEDS: CYANOCOBALAMIN INJ 1,000 MCG/ML VIAL 1000 MCG IM (14:56)
--- NOTE | 2021-12-09 17:58 | PM.IMPN ---
Progress Note: A&P Assessment and Plan (1) New onset seizure: Code(s): R56.9 - Unspecified convulsions Status: Acute Assessment and Plan: Precipitating etiology not entirely clear. Doubt related to alcohol withdrawal as he has not been without alcohol however he states he has been trying to cut back. UDS negative. EtOH level 24. Metabolic gap acidosis noted felt related to seizure; this has resolved. Seizure possibly related to hyponatremia however that is chronic. He does not sleep well and he has not been eating well recently. Brain MRI showing no acute findings. EEG ordered. Neuro consult. Holding on anti-epileptic medications. COntinue seizure precautions. He was informed that he can not drive. (2) Macrocytic anemia: Code(s): D53.9 - Nutritional anemia, unspecified Status: Acute Assessment and Plan: Macrocytosis noted and has been noted in the past. B12 level 273. Will check Folate level. Add MMA. Replace B12. (3) Chronic hyponatremia: Code(s): E87.1 - Hypo-osmolality and hyponatremia Status: Acute Assessment and Plan: Na 123 on admission. Patient has chronic hyponatremia. This has been longstanding and may be related to his alcohol abuse. TSH normal. Urine Na elevated at 94. FENa 1.7%. Na improving with IV fluids. Continue IV fluids. Check cortisol. Hold Lasix (4) Alcohol abuse: Code(s): F10.10 - Alcohol abuse, uncomplicated Status: Acute Assessment and Plan: He has never had signs or symptoms of alcohol withdrawal. No history of seizure prior to admission. Continue CIWA protocol. Start thiamine and folic acid. (5) Hypertension: Code(s): I10 - Essential (primary) hypertension Status: Acute Assessment and Plan: Patient's blood pressure was reviewed on 12/09 Blood pressure remains poorly controlled. Probably related to alcohol abuse. Will continue current medications. Advance Norvasc. (6) Status post total left knee replacement: Code(s): Z96.652 - Presence of left artificial knee joint Status: Acute Assessment and Plan: Patient underwent left TKA on 10/29/21. He toelrated the procedure well and his wound has healed well. Start PT/OT. Since he can not drive, we will arrange for home therapy. Check doppler since he s/p surgery, decreased mobility and probably dehydrated from alcohol and poor oral intake. Plan DVT prophylaxis: Lovenox Code status: DNR Diet: Heart healthy Subjective Date/time seen: 12/09/21 17:58 Interval history: 65yo male with hx of alcoholism, HTN, HLD and with recent left TKR here for seizure-like activity. He was drinking alcohol on the day of the event. He drinks anywhere from 1-10 beers per day. He drinks 8-10 beers per day 3 days per week. He is recovering from recent knee surgery. 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 He did bite his tongue but no incontinene. EMS report showed that the patient was post-ictal. He was also tachycardic and glucose was 110. No hx of seizures. No has not anuj eating much recently for unclear reasons. No n/v. No hx of head injury. No hx of CVA. No odd smells prior to the event. No symptoms prior to the event that he recalls. Exam Narrative: AF 96.6 162/79 73 15 100% ra Gen - NARD lying semi-recumbent in bed. Chest - CTA bilaterally, nml RR CV - RRR S1/S2. Tele showing PVCs. Abd - Soft, NT/ND, Positive BS Ext - No pedal edema. Left knee incision healing well with LLE mild edema Neuro - Alert and oriented. Nonfocal exam. Psych - Nml mood and affect Skin - Warm and dry Objective Data Vital Signs Vital Signs: Vital Signs - 24 hr 12/08/21 19:31 12/08/21 20:16 12/08/21 20:46 Temperature Pulse Rate 87 78 80 Respiratory Rate 20 20 17 Blood Pressure 160/89 H 176/94 H 182/93 H Pulse Oximetry 100 100 100 Oxygen Delivery 12/08/21 21:02 12/08/21 20:57 12/08/21 22:09 Temperature Pulse Rate 80 80 81 Respira
[2021-12-09 19:45] LABS: Sodium 129 mmol/L (137-145)
[2021-12-09] MEDS: THIAMINE HCL 200 MG/2 ML VIAL 100 MG IV PUSH (20:45)
[2021-12-09] MEDS: ENOXAPARIN 40 MG/0.4 ML SYRINGE SUB-Q (20:45)
[2021-12-10] VITALS (8 sets, daily range): BP systolic 135–191; BP diastolic 83–89; PULSE 58–96; RESP 18; TEMP 35.8–36; O2SAT 100
[2021-12-10 06:35] LABS: Albumin Level 3.9 g/dL (3.5-5.1); Anion Gap 10 mmol/L (8-16); Blood Urea Nitrogen 4 mg/dL (9-20); Calcium 8.6 mg/dL (8.4-10.2); Carbon Dioxide 27 mmol/L (22-30); Chloride 96 mmol/L (98-107); Estimated CRCL calculation 85 ml/min; Estimated Glomerular Filt Rate > 60; Glucose 94 mg/dL (65-110); Magnesium 1.6 mg/dL (1.6-2.3); Phosphorus 2.9 mg/dL (2.5-4.5); Potassium 3.7 mmol/L (3.4-5.0); Sodium 133 mmol/L (137-145)
[2021-12-10 07:41] LABS: Folic Acid > 20.0 ng/mL (2.76->20)
[2021-12-10] MEDS: DICLOFENAC SOD 75 MG TABLET.EC PO (08:36)
[2021-12-10] MEDS: METOPROLOL SUCCINATE EXT REL 50 MG TABCR PO (08:36)
[2021-12-10] MEDS: CYANOCOBALAMIN 1,000 MCG TABLET 1000 MCG PO (08:36)
[2021-12-10] MEDS: amLODIPine BESYLATE 5 MG TABLET 10 MG PO (08:37)
[2021-12-10] MEDS: LOSARTAN POTASSIUM 100 MG TABLET PO (08:37)
[2021-12-10] MEDS: ENOXAPARIN 40 MG/0.4 ML SYRINGE SUB-Q (08:37)
[2021-12-10] MEDS: FOLIC ACID 1 MG TABLET PO (08:37)
[2021-12-10] MEDS: SILVER SULFADIAZINE 1% CR 50 GM JAR (*BKC) 1 APPLIC TOPICAL (08:37)
[2021-12-10] MEDS: EZETIMIBE 10 MG TABLET PO (08:37)
[2021-12-10] MEDS: THIAMINE HCL 200 MG/2 ML VIAL 100 MG IV PUSH (08:38)
[2021-12-10] MEDS: SODIUM CHLORIDE 0.9% IV 1,000 ML 80 ML IV CONT (09:28)
--- NOTE | 2021-12-10 10:55 | PCNEURO ---
EEG ordered 12/09/21@17:57 cancelled; EEG already done earlier in the day.
--- NOTE | 2021-12-10 10:56 | PCPTNOTE ---
Attemtped PT evaluation, pt off the floor for testing. Will Follow.
--- NOTE | 2021-12-10 11:06 | WPDNEUROLOGY ---
Neurology EEG Report General Information Date of Study: 12/09/21 TEST eeg DIAGNOSIS new onset seizure CONDITION OF RECORDING awake drowsy and sleep EEG NUMBER [id number] CLINICAL HISTORY patient reports he was sitting outside yesterday when he lost consciousness. Stays he was very low on sodium EEG DESCRIPTION background rhythm consists of low-voltage 15 to 18 hertz per 2nd beta. Bilateral symmetrical sleep activity seen during sleep. Intermittent 2 to 3 hertz per 2nd delta activity is noted lasting only for 1-1/2 seconds. Hyperventilation not done. Photic stimulation not done. Nonfocal. Nonlateralizing. IMPRESSION Abnormal record due to the presence of delta activity even though lasting for only 1-1/2 seconds this abnormality could be suggestive of underlying organic or metabolic encephalopathy. Clinical correlation recommended possibility of focal structural lesion needs to be ruled out.
--- NOTE | 2021-12-10 11:35 | WPDNEURCNPN ---
Assessment and Plan Assessment and plan (1) Chronic hyponatremia: Code(s): E87.1 - Hypo-osmolality and hyponatremia Status: Acute (2) New onset seizure: Code(s): R56.9 - Unspecified convulsions Status: Acute Plan 1 seizure disorder 2 hyponatremia 3 abnormal EEG which could be related to the postictal state but needs to be treated with the anticonvulsants at this stage otherwise fairly stable Consult date: 12/10/21 Time Seen: 10:30 Reason for consult: seizures HPI: Triston Ivan is a 66 year old male admitted to the hospital through the emergency room where he presented for evaluation of new onset seizure patient reported he was sitting outside and that is all he remembers. His family noted that he was sitting up, started foaming around the mouth and seizing the whole activity lasted for 2 minutes patient was laid down on the ground and was confused up until he arrived in the emergency room he did bite his tongue during that episode in addition he complained of left shoulder pain we patient had been taking amlodipine 5 mg daily, furosemide 20 mg tablet half a tablet daily, losartan 100 mg daily, metoprolol 50 mg daily, and knees at my [place] 10 mg daily, he is not known to be allergic to any medications. He does have ongoing history of 1. Alcohol abuse 2. Gout 3. Hyper 4. Chronic hyponatremia in addition to multiple surgeries, he chews tobacco currently alcohol intake a 4 to 5 beers daily and initial evaluation in the emergency room revealed blood pressure 164/1 over 1 normal CBC, basic metabolic abnormal with sodium 123 drug screen negative , initial CT scan of the head negative for for the bleed and MRI of the brain only documented moderate nonspecific white matter disease left shoulder x-ray and chest x-ray were negative Review of Systems Review of Systems: All systems reviewed & are unremarkable except as noted in HPI and below [facility] Past Medical History Medical History (Updated 12/08/21 @ 19:54 by Merlene Moore PA-C) Alcohol abuse Chronic hyponatremia Gout Hyperlipidemia Hypertension Surgical History Surgical History (Updated 12/08/21 @ 19:50 by Merlnee Moore PA-C) History of arthroplasty of left knee History of cardiac catheterization History of colonoscopy History of oral surgery Status post total left knee replacement Family History Family History Father Skin cancer Hypertension Mother Acute myocardial infarction Cerebrovascular accident Heart disease Social History Social History (Updated 12/09/21 @ 03:40 by Merlene Moore PA-C) Social History: Surrogate medical decision maker: Janell Ivan, spouse. Code status: Full code. Smoking status: Never smoker Smokeless tobacco user: chewing tobacco Second hand tobacco smoke exposure: No Alcohol intake: current Drinks per week: 56 Alcohol use details: Around 8 beers a day. Substance use: never Substance use type: does not use Additional living arrangements comments: The patient lives with his in [place]. 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 Meds Home Medications and Allergies Home Medications Medication Instructions Recorded Confirmed Type amlodipine 5 mg tablet 5 mg PO QAM 07/02/21 12/08/21 History furosemide 20 mg tablet 20 mg PO QAM 07/02/21 12/08/21 History losartan 100 mg tablet 100 mg PO QAM 07/02/21 12/08/21 History diclofenac sodium 75 mg 75 mg PO BID 10/09/21 12/08/21 History tablet,delayed release ezetimibe 10 mg tablet 10 mg PO QAM 10/09/21 12/08/21 History silver sulfadiazine 1 % topical 1 applic topical DAILY #50 grams 12/06/21 12/08/21 Rx cream (Silvadene) metoprolol succinate 50 mg 50 mg PO DAILY 12/09/21 12/09/21 History tablet,extended release 24 hr Allergies Allergy/AdvReac Type Severity Reaction Statu
--- NOTE | 2021-12-10 16:16 | PM.DS ---
DS: Admitting Diagnosis Discharge Date 12/10/21 Admitting Diagnosis Seizure DS: Discharge Diagnosis Discharge Diagnosis (1) New onset seizure: Code(s): R56.9 - Unspecified convulsions Status: Acute (2) Macrocytic anemia: Code(s): D53.9 - Nutritional anemia, unspecified Status: Acute (3) Chronic hyponatremia: Code(s): E87.1 - Hypo-osmolality and hyponatremia Status: Acute (4) Alcohol abuse: Code(s): F10.10 - Alcohol abuse, uncomplicated Status: Acute (5) Hypertension: Code(s): I10 - Essential (primary) hypertension Status: Acute (6) Status post total left knee replacement: Code(s): Z96.652 - Presence of left artificial knee joint Status: Acute DS: Summary Hospital Course Reason for hospitalization: 65yo male with hx of alcoholism, HTN, HLD and with recent left TKR here for seizure-like activity. Please see H&P for details Hospital Course: Patient presents after having seizure-like activity. Precipitating etiology not entirely clear. Doubt related to alcohol withdrawal as he has not been without alcohol however he states he has been trying to cut back. UDS negative. EtOH level 24. Metabolic gap acidosis noted felt related to seizure; this has resolved. Seizure possibly related to hyponatremia however that is chronic. He does not sleep well and he has not been eating well recently. Brain MRI showing no acute findings. EEG showing abnormal record due to the presence of delta activity. Neurology recommended starting Keppra which was done. Macrocytosis noted and has been noted in the past. B12 level 273. B12 was replaced. MMA pending. Na 123 on admission. Patient has chronic hyponatremia. This has been longstanding and may be related to his alcohol abuse. TSH was normal. Urine Na elevated at 94. FENa 1.7%. Na improving with IV fluids. He has never had signs or symptoms of alcohol withdrawal.? No history of seizure prior to admission. He was monitored with CIWA protocol. Blood pressure was poorly controlled.? Probably related to alcohol abuse. We advanced Norvasc. Patient underwent left TKA on 10/29/21. He tolerated the procedure well and his wound has healed well. He had no recurrent symptoms. He was able be discharged home on 12/10/2021. He was informed that he can not drive. Status at Discharge Cognitive/behavioral status at discharge: Stable Time Spent with Patient Time attestation: Total time spent providing and/or coordinating discharge services: 34minutes Time spent: Greater than 30 minutes Exam Narrative: AF 96.8 135/83 70 18 100% ra Gen - NARD Chest - CTA bilaterally, nml RR CV - RRR S1/S2. Tele showing sinus arrthymias Abd - Soft, NT/ND, Positive BS Ext - No pedal edema. Left knee incision healing well Neuro - Alert and oriented. Nonfocal exam. Psych - Nml mood and affect Skin - Warm and dry DS: Data Data Completed and Pending Labs on day of discharge: Labs from last 24 hours 12/10/21 12/09/21 05:51 19:21 Sodium 133 L 129 L Potassium 3.7 Chloride 96 L Carbon Dioxide 27 Anion Gap 10 BUN 4 L Creatinine 0.80 Estim Creat Clear Calc 85 Estimated GFR > 60 Glucose 94 Calcium 8.6 Phosphorus 2.9 Magnesium 1.6 Albumin 3.9 Folate > 20.0 H Discharge Plan Discharge Attending physician on discharge: Maldonado Fleming Consulting providers: Clifford Alva Discharging Clinician: Maldonado Fleming Anticipated Discharge Date/Time: 12/10/21 16:26 Patient Disposition: Home, Self-Care Activity: no driving Diet: heart healthy Discharge Instructions: Please avoid all products that contain alcohol Take precautions to avoid falls. Rise slowly from a lying or sitting position. Pause before standing or walking. Contact your doctor or call 911 and come to the Emergency Room if you have recurrent seizure-like activity or other worrisome symptoms. Avoid NSAIDs (i
[2021-12-11 09:13] LABS: Methylmalonic Acid 276 nmol/L (87-318)
[2021-12-12 13:42] LABS: Osmolality, Urine 266 mOsm/kg (50-1200)
== END 2021-12-10 16:55 | disposition home or self-care (01) ==
LOC: ANHED 19:51 → ANH3MEDSUR 21:04
PROVIDERS: General Practice; Physician Assistant; Admitting Provider Internal Medicine; Emergency Provider Emergency Medicine; PCP Family Medicine Sports Medicine; Visit Provider Internal Medicine
DX: R56.9 Unspecified convulsions (principal); D53.9 Nutritional anemia, unspecified; E87.1 Hypo-osmolality and hyponatremia; F10.10 Alcohol abuse, uncomplicated; Y90.1 Blood alcohol level of 20-39 mg/100 ml; Z96.652 Presence of left artificial knee joint; I10 Essential (primary) hypertension; S01.552A Open bite of oral cavity, initial encounter; X58.XXXA Exposure to other specified factors, initial encounter; E78.5 Hyperlipidemia, unspecified; R94.01 Abnormal electroencephalogram [EEG]; E87.2 Acidosis; I45.10 Unspecified right bundle-branch block; I49.1 Atrial premature depolarization; R94.31 Abnormal electrocardiogram [ECG] [EKG]; R60.0 Localized edema; M25.512 Pain in left shoulder; M10.9 Gout, unspecified; R00.0 Tachycardia, unspecified; R90.82 White matter disease, unspecified; F17.220 Nicotine dependence, chewing tobacco, uncomplicated; Z20.822 Contact with and (suspected) exposure to COVID-19; Z79.899 Other long term (current) drug therapy
CPT/HCPCS: 36415; 70450; 70553; 71045; 73030; 80048; 80053; 80069; 80307; 81001; 82550; 82570; 82607; 82728; 82746; 83540; 83550; 83735; 83921; 83930; 83935; 84295; 84300; 84439; 84443; 84480; 84484; 85025; 85610; 85730; 93005; 93971; 95816; 96360; 96361; 96372; 96374; 99285; A9270; A9577; C9803; G0378; J1650; J3411; J3420; J7030; U0003; U0005

== ENCOUNTER 2022-06-13 06:39 | Observation (INO) | payer OTHER, SELFPAY ==
[2022-06-13] VITALS (23 sets, daily range): BP systolic 100–166; BP diastolic 66–96; PULSE 63–89; RESP 11–31; TEMP 36.4–37.2; O2SAT 95–100; BMI 24.2
--- NOTE | 2022-06-13 07:23 | ED.GENADULT ---
HPI - General Adult General Chief complaint: Nausea/Vomiting/Diarrhea Stated complaint: vomiting blood and the runs Time Seen by Provider: 06/13/22 07:01 Source: RN notes reviewed History of Present Illness HPI narrative: Patient presents emergency department from home for nausea vomiting and diarrhea. Patient states that symptoms began at approximately 8 PM last night. He states he has had approximately 4 bowel movements that have all been dark in nature and appear to have blood in them he states he is also vomited twice numbness is also been dark and appeared to have blood he states that he does have some abdominal cramping when he vomits but otherwise has not had any abdominal pain. He denies being on any blood thinners but is noted to be on diclofenac and his medications that he list from at home he denies any fevers or chills chest pain shortness of breath or any other symptoms. Patient states he does drink approximately 4-10 beers a day last drink was yesterday. Denies any previous history of GI bleed Related Data Home Medications Medication Instructions Recorded Confirmed losartan 100 mg tablet 100 mg PO QAM 07/02/21 02/19/22 diclofenac sodium 75 mg 75 mg PO BID 10/09/21 02/19/22 tablet,delayed release ezetimibe 10 mg tablet 10 mg PO QAM 10/09/21 02/19/22 metoprolol succinate 50 mg 50 mg PO DAILY 12/09/21 02/19/22 tablet,extended release 24 hr Allergies Allergy/AdvReac Type Severity Reaction Status Date / Time No Known Allergies Allergy Verified 02/19/22 15:41 Review of Systems Review of Systems: Gen.: Denies fevers or chills ENT: Denies congestion Respiratory: Denies shortness of breath or cough CV: Denies chest pain or palpitations GI: See HPI Musculoskeletal: Denies back pain or muscle pain Neuro: Denies numbness, tingling, weakness or focal weakness Skin: Denies rash Except as documented, all other systems reviewed and negative PMFSH Past Medical History Medical History Alcohol abuse Chronic hyponatremia Gout Hyperlipidemia Hypertension Surgical History Surgical History History of arthroplasty of left knee History of cardiac catheterization History of colonoscopy History of oral surgery Status post total left knee replacement Family History Family History Father Skin cancer Hypertension Mother Acute myocardial infarction Cerebrovascular accident Heart disease Social History Social History Social History: Surrogate medical decision maker: Janell Ivan, spouse. Code status: Full code. Smoking status: Never smoker Second hand tobacco smoke exposure: No Alcohol intake: current Drinks per week: 56 Alcohol use details: Around 8 beers a day. Substance use: never Substance use type: does not use Lack of Transportation: No Lack of Food: Never True Current Housing: I Have Housing Concerned About Future Housing: No Difficulty Paying Gas/Electric Bills: No Difficulty Paying for Meds: No Currently Unemployed: No Education: High School Diploma/GED Difficulty w/ Childcare or Family Care: No Living arrangements: with family Additional living arrangements comments: The patient lives with his in [place]. 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 Spiritual care concerns: No Exam Narrative: APPEARANCE: No acute distress, nontoxic, resting in bed EYES: EOMI HEENT: Normocephalic, atraumatic, OMM RESPIRATORY: No respiratory distress Clear to auscultation bilaterally with no rhonchi wheezing or rales. CARDIOVASCULAR: Regular rate and rhythm without murmurs rubs or gallops. ABDOMINAL: Soft, nontender, nondistended, no rebound or guarding Rectal: No hemorrhoids or fissures black stool presen
[2022-06-13] MEDS: SODIUM CHLORIDE 0.9% IV 1,000 ML 999 ML IV CONT (07:26)
[2022-06-13 07:31] LABS: Basophils Percent Auto 0.6 % (0.2-1.2); Eosinophils Percent Auto 0.1 % (0-4.4); Hematocrit 31.2 % (42.0-52.0); Hemoglobin 10.9 g/dL (14.0-18.0); Immature Granulocyte Absolute 0.03 K/mm3 (0.00-0.031); Immature Granulocyte Percent A 0.4 % (0-0.5); Lymphocytes Absolute Auto 0.81 K/mm3 (0.9-3.2); Lymphocytes Percent Auto 11.4 % (18.3-44.2); Mean Corpuscular HGB Conc 34.9 g/dl (32-36); Mean Corpuscular Hemoglobin 35.9 pg (26-34); Mean Corpuscular Volume 102.6 fl (80-100); Mean Platelet Volume 8.3 fl (7.4-10.4); Monocytes Absolute Auto 0.7 K/mm3 (0.1-0.6); Monocytes Percent Auto 10.4 % (2.6-8.5); Neutrophils Absolute Auto 5.5 K/mm3 (1.3-6.7); Neutrophils Percent Auto 77.1 % (45.5-73.1); Platelet Count Result 268 k/mm3 (150-375); Red Blood Count 3.04 M/mm3 (4.6-6.20); Red Cell Distribution Width 11.8 % (11.5-14.5); White Blood Count 7.1 K/mm3 (4.5-10.0)
[2022-06-13 07:42] LABS: Prothrombin Time 12.7 Seconds (11.1-14.7)
[2022-06-13 07:44] LABS: Partial Thromboplastin Time 26.9 SECONDS (22.3-36.8)
[2022-06-13 08:03] LABS: Ethanol < 10 mg/dL (<10)
[2022-06-13 08:03] LABS: Alanine Aminotransferase 19 U/L (6-50); Albumin Level 4.3 g/dL (3.5-5.1); Alkaline Phosphatase 89 U/L (38-126); Anion Gap 8 mmol/L (8-16); Aspartate Amino Transferase 33 U/L (17-59); Bilirubin,Total 1.3 mg/dL (0.2-1.3); Blood Urea Nitrogen 32 mg/dL (9-20); Carbon Dioxide 28 mmol/L (22-30); Chloride 95 mmol/L (98-107); Estimated CRCL calculation 70 ml/min; Estimated Glomerular Filt Rate > 60; Glucose 131 mg/dL (65-110); Potassium 4.7 mmol/L (3.4-5.0); Sodium 131 mmol/L (137-145)
[2022-06-13] MEDS: THIAMINE HCL 200 MG/2 ML VIAL 100 MG IV PUSH (08:51)
[2022-06-13] MEDS: PANTOPRAZOLE SODIUM IV 40 MG VIAL IV PUSH (08:51)
[2022-06-13] MEDS: SODIUM CHLORIDE 0.9% IV 1,000 ML 125 ML IV CONT (10:03)
[2022-06-13 12:22] LABS: Hematocrit 29.9 % (42.0-52.0); Hemoglobin 10.4 g/dL (14.0-18.0)
--- NOTE | 2022-06-13 12:38 | ADMGEN ---
This patient, Triston Ivan, was admitted to 3 Med Surg Room 316-01 @ 1015. Patient/family oriented to hospital policies and general routines including ID bracelet, bed and alarms, visiting hours, pain management, procedures, bathroom and other care routines, personal items, smoking policy, room service/diet, and visiting hours. Information on how to activate the Rapid Response Team has been discussed. Patient/Family are encouraged to report perceived risks to care and to ask questions if they do not understand what they are told or what they should do.
[2022-06-13] MEDS: LACTATED RINGERS 1,000 ML 150 ML IV CONT (13:08)
--- NOTE | 2022-06-13 13:08 | WPDANESEPPF ---
Anes - Initial Pre Proc Eval Procedure: Operation Date: 06/13/22 14:00 Proposed Procedures p Esophagogastroduodenoscopy - Shaquille Hinojosa MD Date/Time: 06/13/22 13:08 Surgeon: Winston Awan MD Pre Op Diagnosis: GI Bleed Patient Data Age: 66 Gender: M Height: 1.83 m Weight: 81 kg Last Vital Signs Temp 37.2 C 06/13/22 12:59 Pulse 83 06/13/22 12:59 Resp 16 06/13/22 12:59 BP 159/82 H 06/13/22 12:59 Pulse Ox 100 06/13/22 12:59 O2 Del Method Room Air 06/13/22 12:59 Allergies Allergy/AdvReac Type Severity Reaction Status Date / Time No Known Allergies Allergy Verified 06/13/22 12:55 Home Medications Medication Instructions Recorded Confirmed Type losartan 100 mg tablet 100 mg PO QAM 07/02/21 02/19/22 History diclofenac sodium 75 mg 75 mg PO BID 10/09/21 02/19/22 History tablet,delayed release ezetimibe 10 mg tablet 10 mg PO QAM 10/09/21 02/19/22 History silver sulfadiazine 1 % topical 1 applic topical DAILY #50 grams 12/06/21 02/19/22 Rx cream (Silvadene) metoprolol succinate 50 mg 50 mg PO DAILY 12/09/21 02/19/22 History tablet,extended release 24 hr amlodipine 5 mg tablet 10 mg PO QAM #60 tabs 12/10/21 02/19/22 Rx thiamine HCl (vitamin B1) 100 mg 100 mg PO QAM #30 tabs 12/10/21 02/19/22 Rx tablet (Vitamin B-1) levetiracetam 500 mg tablet 500 mg PO Q12HR #60 tabs 01/17/22 02/19/22 Rx (Keppra) Laboratory Tests 06/13/22 06/13/22 06/13/22 07:26 07:26 07:26 WBC 7.1 K/mm3 K/mm3 (4.5-10.0) RBC 3.04 M/mm3 L M/mm3 (4.6-6.20) Hgb 10.9 g/dL L g/dL (14.0-18.0) Hct 31.2 % L % (42.0-52.0) MCV 102.6 fl H fl (80-100) MCH 35.9 pg H pg (26-34) MCHC 34.9 g/dl g/dl (32-36) RDW 11.8 % % (11.5-14.5) Plt Count 268 k/mm3 k/mm3 (150-375) MPV 8.3 fl fl (7.4-10.4) Immature Gran % (Auto) 0.4 % % (0-0.5) Neut % (Auto) 77.1 % H % (45.5-73.1) Lymph % (Auto) 11.4 % L % (18.3-44.2) [place] % (Auto) 10.4 % H % (2.6-8.5) Eos % (Auto) 0.1 % % (0-4.4) Baso % (Auto) 0.6 % % (0.2-1.2) Lymph # (Auto) 0.81 K/mm3 L K/mm3 (0.9-3.2) [place] # (Auto) 0.7 K/mm3 H K/mm3 (0.1-0.6) Eos # (Auto) 0.0 K/mm3 K/mm3 (0-0.3) Baso # (Auto) 0.0 K/mm3 K/mm3 (0.0-0.1) Abs Immat Gran (auto) 0.03 K/mm3 K/mm3 (0.00-0.031) Absolute Neuts (auto) 5.5 K/mm3 K/mm3 (1.3-6.7) Absolute Nucleated RBC 0.0 K/mm3 K/mm3 (0.0-0.012) Nucleated RBC % 0.0 % % (0.0-0.2) PT INR APTT Sodium 131 mmol/L L mmol/L (137-145) Potassium 4.7 mmol/L mmol/L (3.4-5.0) Chloride 95 mmol/L L mmol/L (98-107) Carbon Dioxide 28 mmol/L mmol/L (22-30) Anion Gap 8 mmol/L mmol/L (8-16) BUN 32 mg/dL H D mg/dL (9-20) Creatinine 1.00 mg/dL mg/dL (0.7-1.3) Estim Creat Clear Calc 70 ml/min ml/min Estimated GFR > 60 (59 - ) Glucose 131 mg/dL H mg/dL (65-110) Calcium 10.0 mg/dL mg/dL (8.4-10.2) Total Bilirubin 1.3 mg/dL mg/dL (0.2-1.3) AST 33 U/L U/L (17-59) ALT 19 U/L U/L (6-50) Alkaline Phosphatase 89 U/L U/L (38-126) Total Protein 7.0 g/dL g/dL (6.3-8.2) Albumin 4.3 g/dL g/dL (3.5-5.1) Ethyl Alcohol Blood Type O Negative Antibody Screen Negative 06/13/22 06/13/22 06/13/22 07:26 07:30 12:13 WBC RBC Hgb 10.4 g/dL L g/dL (14.0-18.0) Hct 29.9 % L % (42.0-52.0) MCV MCH MCHC RDW Plt Count MPV Immature Gran % (Auto) Neut % (Auto) Lymph % (Auto) M
[2022-06-13] MEDS: AMPICILLIN 2 GM/NS 100 ML 2 GM/100 ML BAG IVPB (13:09)
--- NOTE | 2022-06-13 13:19 | WPDGICN ---
Assessment and Plan Assessment and plan (1) GI bleed: Code(s): K92.2 - Gastrointestinal hemorrhage, unspecified Status: Acute Assessment and Plan: Patient admitted with GI bleeding. With melena and hematemesis this appears to come from the upper GI tract. Plan for EGD. Hemoglobin is essentially stable. Initially will place patient on PPI therapy. Further recommendations will be given after endoscopy risk factor for bleeding includes is alcohol use on a routine basis as well as diclofenac use. Further recommendations may be given after endoscopy. GI Consult Note Consult date/time: 06/13/22 13:19 Reason for consult: Hematemesis and melena HPI: Triston Ivan is a 66 year old male I am asked to see in consult at the request of the emergency room. Patient reports he was in his usual state of health. Last evening vomited coffee-ground like material on several occasions throughout the evening. This morning he passed a black stool. For this reason he went to the emergency room. Patient was found to have Hemoccult-positive stool. Patient denies abdominal pain. He does admit to drinking beers 4-10 a day on a routine daily basis. He has never been told that he had liver disease. He has no known history of ulcer disease. He does have pain in his left knee for which she is prescribed diclofenac. Family history is noncontributory. Review of Systems Review of Systems: Review of systems noncontributory. [facility] Past Medical History Medical History Alcohol abuse Chronic hyponatremia Gout Hyperlipidemia Hypertension Surgical History Surgical History History of arthroplasty of left knee History of cardiac catheterization History of colonoscopy History of oral surgery Status post total left knee replacement Family History Family History Father Skin cancer Hypertension Mother Acute myocardial infarction Cerebrovascular accident Heart disease Social History Social History Social History: Surrogate medical decision maker: Janell Ivan, spouse. Code status: Full code. Smoking status: Never smoker Second hand tobacco smoke exposure: No Alcohol intake: current Drinks per week: 56 Alcohol use details: Around 8 beers a day. Substance use: never Substance use type: does not use Lack of Transportation: No Lack of Food: Never True Current Housing: I Have Housing Concerned About Future Housing: No Difficulty Paying Gas/Electric Bills: No Difficulty Paying for Meds: No Currently Unemployed: No Education: High School Diploma/GED Difficulty w/ Childcare or Family Care: No Living arrangements: with family Additional living arrangements comments: The patient lives with his in [place]. 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 Meds Home Medications and Allergies Home Medications Medication Instructions Recorded Confirmed Type losartan 100 mg tablet 100 mg PO QAM 07/02/21 02/19/22 History diclofenac sodium 75 mg 75 mg PO BID 10/09/21 02/19/22 History tablet,delayed release ezetimibe 10 mg tablet 10 mg PO QAM 10/09/21 02/19/22 History silver sulfadiazine 1 % topical 1 applic topical DAILY #50 grams 12/06/21 02/19/22 Rx cream (Silvadene) metoprolol succinate 50 mg 50 mg PO DAILY 12/09/21 02/19/22 History tablet,extended release 24 hr amlodipine 5 mg tablet 10 mg PO QAM #60 tabs 12/10/21 02/19/22 Rx thiamine HCl (vitamin B1) 100 mg 100 mg PO QAM #30 tabs 12/10/21 02/19/22 Rx tablet (Vitamin B-1) levetiracetam 500 mg tablet 500 mg PO Q12HR #60 tabs 01/17/22 02/19/22 Rx (Keppra) Allergies Allergy/AdvReac Type Severity Reaction Status Date / Time N
[2022-06-13] MEDS: BENZOCAINE (*SP) 60 ML SPRAY CAN (HURRICAINE) 1 SPRAY MUCOUS MEM (13:52)
--- NOTE | 2022-06-13 15:41 | PM.IMHP ---
H&P: HPI History of Present Illness Date/Time: 06/13/22 15:41 Chief Complaint: hematemesis Narrative: Patient presents to the ED with dark stool with associated abdominal cramping but no abdominal pain. He is not on any blood thinner. He also started vomiting coffee-ground emesis several episode and hence came to the ER for evaluation. In the ER was found to be Hemoccult positive. He had been to EGD and showed findings of hiatal hernia reflux esophagitis and acute gastric and duodenal ulcer. No active bleeding were seen. Spin placed on PPI and is admitted for further evaluation. He drinks approximately 4-10 beers a day. No history of alcohol withdrawal in the past Review of Systems Review of Systems: - CONSTITUTIONAL: Denies weight loss, fever and chills. - HEENT: Denies changes in vision and hearing - RESPIRATORY: Denies SOB and cough. - CV: Denies palpitations and CP. - GI: Denies abdominal pain, reports nausea, vomiting and diarrhea. - : Denies dysuria and urinary frequency. - MSK: Denies myalgia and joint pain. - SKIN: Denies rash and pruritus. - NEUROLOGICAL: Denies headache and syncope. - PSYCHIATRIC: Denies recent changes in mood. Denies anxiety and depression. [facility] Past Medical History Medical History Alcohol abuse Chronic hyponatremia Gout Hyperlipidemia Hypertension Surgical History Surgical History History of arthroplasty of left knee History of cardiac catheterization History of colonoscopy History of oral surgery Status post total left knee replacement Family History Family History Father Skin cancer Hypertension Mother Acute myocardial infarction Cerebrovascular accident Heart disease Social History Social History Social History: Surrogate medical decision maker: Janell Ivan, spouse. Code status: Full code. Smoking status: Never smoker Second hand tobacco smoke exposure: No Alcohol intake: current Drinks per week: 56 Alcohol use details: Around 8 beers a day. Substance use: never Substance use type: does not use Lack of Transportation: No Lack of Food: Never True Current Housing: I Have Housing Concerned About Future Housing: No Difficulty Paying Gas/Electric Bills: No Difficulty Paying for Meds: No Currently Unemployed: No Education: High School Diploma/GED Difficulty w/ Childcare or Family Care: No Living arrangements: with family Additional living arrangements comments: The patient lives with his in [place]. 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 Meds Home Medications and Allergies Home Medications Medication Instructions Recorded Confirmed Type losartan 100 mg tablet 100 mg PO QAM 07/02/21 02/19/22 History diclofenac sodium 75 mg 75 mg PO BID 10/09/21 02/19/22 History tablet,delayed release ezetimibe 10 mg tablet 10 mg PO QAM 10/09/21 02/19/22 History silver sulfadiazine 1 % topical 1 applic topical DAILY #50 grams 12/06/21 02/19/22 Rx cream (Silvadene) metoprolol succinate 50 mg 50 mg PO DAILY 12/09/21 02/19/22 History tablet,extended release 24 hr amlodipine 5 mg tablet 10 mg PO QAM #60 tabs 12/10/21 02/19/22 Rx thiamine HCl (vitamin B1) 100 mg 100 mg PO QAM #30 tabs 12/10/21 02/19/22 Rx tablet (Vitamin B-1) levetiracetam 500 mg tablet 500 mg PO Q12HR #60 tabs 01/17/22 02/19/22 Rx (Keppra) Allergies Allergy/AdvReac Type Severity Reaction Status Date / Time No Known Allergies Allergy Verified 06/13/22 12:55 Vital Signs Vital Signs - 24 hr 06/13/22 06:44 06/13/22 08:54 06/13/22 07:20 Temperature 98.0 F Pulse Rate 89 84 74 Respiratory Rate 18 18 12 Blood Pressure 163/87 H 1
[2022-06-13 18:19] LABS: Hematocrit 28.2 % (42.0-52.0); Hemoglobin 9.8 g/dL (14.0-18.0)
[2022-06-13] MEDS: PANTOPRAZOLE 40 MG TABLET PO (20:29)
[2022-06-14] VITALS: PULSE 66
[2022-06-14 01:12] LABS: Hematocrit 24.6 % (42.0-52.0); Hemoglobin 8.5 g/dL (14.0-18.0)
[2022-06-14 04:00] VITALS: PULSE 60
[2022-06-14 05:52] VITALS: BP 120/78; PULSE 60; RESP 18; TEMP 36.3; O2SAT 98
[2022-06-14] MEDS: SODIUM CHLORIDE 0.9% IV 1,000 ML 125 ML IV CONT (05:59)
[2022-06-14 07:14] LABS: Basophils Percent Auto 0.8 % (0.2-1.2); Eosinophils Absolute Auto 0.2 K/mm3 (0-0.3); Eosinophils Percent Auto 4.4 % (0-4.4); Hematocrit 27.4 % (42.0-52.0); Hemoglobin 9.2 g/dL (14.0-18.0); Immature Granulocyte Absolute 0.01 K/mm3 (0.00-0.031); Immature Granulocyte Percent A 0.2 % (0-0.5); Lymphocytes Absolute Auto 1.19 K/mm3 (0.9-3.2); Lymphocytes Percent Auto 24.8 % (18.3-44.2); Mean Corpuscular HGB Conc 33.6 g/dl (32-36); Mean Corpuscular Hemoglobin 35.2 pg (26-34); Mean Platelet Volume 8.5 fl (7.4-10.4); Monocytes Absolute Auto 0.5 K/mm3 (0.1-0.6); Monocytes Percent Auto 11.3 % (2.6-8.5); Neutrophils Absolute Auto 2.8 K/mm3 (1.3-6.7); Neutrophils Percent Auto 58.5 % (45.5-73.1); Platelet Count Result 231 k/mm3 (150-375); Red Blood Count 2.61 M/mm3 (4.6-6.20); Red Cell Distribution Width 11.9 % (11.5-14.5); White Blood Count 4.8 K/mm3 (4.5-10.0)
[2022-06-14 07:36] LABS: Alanine Aminotransferase 17 U/L (6-50); Albumin Level 3.4 g/dL (3.5-5.1); Alkaline Phosphatase 70 U/L (38-126); Anion Gap 5 mmol/L (8-16); Aspartate Amino Transferase 31 U/L (17-59); Bilirubin,Total 1.1 mg/dL (0.2-1.3); Blood Urea Nitrogen 18 mg/dL (9-20); Calcium 8.2 mg/dL (8.4-10.2); Carbon Dioxide 27 mmol/L (22-30); Chloride 101 mmol/L (98-107); Estimated CRCL calculation 77 ml/min; Estimated Glomerular Filt Rate > 60; Glucose 97 mg/dL (65-110); Potassium 4.2 mmol/L (3.4-5.0); Sodium 133 mmol/L (137-145)
[2022-06-14 08:00] VITALS: PULSE 64
[2022-06-14] MEDS: PANTOPRAZOLE 40 MG TABLET PO (10:15)
--- NOTE | 2022-06-14 10:33 | WPDGIPROGNO ---
Progress Note: A&P Assessment and Plan (1) Peptic ulcer disease: Code(s): K27.9 - Peptic ulcer, site unspecified, unspecified as acute or chronic, without hemorrhage or perforation Status: Acute Assessment and Plan: Patient found to have multiple gastric and duodenal ulcers along with erosive esophagitis. Plan to keep on pantoprazole 40 mg p.o. b.i.d.. Follow-up EGD in 2-3 months to document healing. Patient should avoid NSAIDs. Avoid diclofenac . Histology of ulcers are pending, will be reviewed when available. Discharge today anticipated. (2) Erosive esophagitis: Code(s): K22.10 - Ulcer of esophagus without bleeding Status: Acute Assessment and Plan: Long-term use of PPI advised. Patient found to have erosive esophagitis consistent with GERD. Anti-reflux measures encouraged. (3) Alcohol abuse: Code(s): F10.10 - Alcohol abuse, uncomplicated Status: Acute Assessment and Plan: Patient drinks on a regular basis. Suggest he abstain from alcohol if at all possible. This likely contributes to some of his ulcer disease. Subjective Date/time seen: 06/14/22 10:33 Interval history: Patient alert comfortable this morning. No additional bleeding noted. Notices some vague indigestion. Anxious to go home. Review of Systems Review of Systems: Review of systems noncontributory. Exam Narrative: Physical exam reveals patient be alert. Vital signs stable. HEENT exam is unremarkable. Patient anicteric. Lungs are clear. Heart without murmur. Abdomen bowel sounds present soft nontender. Objective Data Vital Signs Vital Signs: Vital Signs - 24 hr 06/13/22 12:59 06/13/22 12:58 06/13/22 14:03 Temperature 98.9 F 98.6 F Pulse Rate 83 72 75 Respiratory Rate 16 16 17 Blood Pressure 159/82 H 143/91 H 100/66 Pulse Oximetry 100 100 95 Oxygen Delivery Room Air Room Air 06/13/22 14:13 06/13/22 14:23 06/13/22 12:37 Temperature Pulse Rate 77 73 Respiratory Rate 15 18 Blood Pressure 112/70 128/66 Pulse Oximetry 98 98 Oxygen Delivery Room Air Room Air Room Air 06/13/22 14:00 06/13/22 16:00 06/13/22 20:24 Temperature 97.6 F Pulse Rate 69 78 87 Respiratory Rate 16 Blood Pressure 117/74 Pulse Oximetry 100 Oxygen Delivery 06/13/22 22:00 06/14/22 00:00 06/14/22 05:52 Temperature 98.2 F 97.4 F L Pulse Rate 71 66 60 Respiratory Rate 18 18 Blood Pressure 119/76 120/78 Pulse Oximetry 98 98 Oxygen Delivery 06/14/22 04:00 06/14/22 08:00 06/14/22 08:00 Temperature Pulse Rate 60 64 Respiratory Rate Blood Pressure Pulse Oximetry Oxygen Delivery Room Air Intake/Output Intake/Output: Intake & Output 06/11/22 06/12/22 06/13/22 06/14/22 23:59 23:59 23:59 23:59 Intake Total 2200 540 Output Total 700 Balance 2200 -160 Meds/Results Medications: Active Medications Generic Name Dose Route Start Last Admin Trade Name Freq PRN Reason Stop Dose Admin Sodium Chloride 1,000 mls @ 125 mls/hr 06/13/22 09:05 06/14/22 10:17 Normal Saline Iv IV CONT Not Given .Q8H EDMUNDO Pantoprazole Sodium 40 mg 06/13/22 21:00 06/14/22 10:15 Pantoprazole 40 Mg Tablet PO 40 mg Q12HR EDMUNDO Administration Labs Labs: Laboratory Results - last 24 hr 06/13/22 06/13/22 06/14/22 12:13 18:03 01:07 WBC RBC Hgb 10.4 L 9.8 L 8.5 L Hct 29.9 L 28.2 L 24.6 L MCV MCH MCHC RDW Plt Count MPV Immature Gran % (Auto) Neut % (Auto) Lymph % (Auto) [place] % (Auto) Eos % (Auto) Baso % (Auto) Lymph # (Auto) [place] # (Auto) Eos # (Auto) Baso # (Auto) Abs Immat Gran (auto) Absolute Neuts (auto) Absolute Nucleated RBC Nucleated RBC % Sodium Potassium Chloride Carbon Dioxide Anion Gap BUN Creatinine Estim Creat Clear Calc Estimated GFR Glucose Calcium Total Bilirubin AST A
[2022-06-14 12:00] VITALS: PULSE 68
--- NOTE | 2022-06-14 12:31 | PM.DS ---
DS: Admitting Diagnosis Discharge Date 06/14/2022 Admitting Diagnosis Bloody stool DS: Discharge Diagnosis Discharge Diagnosis (1) GI bleed: Code(s): K92.2 - Gastrointestinal hemorrhage, unspecified Status: Acute (2) Hypertension: Code(s): I10 - Essential (primary) hypertension Status: Acute (3) Alcohol abuse: Code(s): F10.10 - Alcohol abuse, uncomplicated Status: Acute (4) Hyponatremia: Code(s): E87.1 - Hypo-osmolality and hyponatremia Status: Acute (5) Arthritis of left knee: Code(s): M17.12 - Unilateral primary osteoarthritis, left knee Status: Acute (6) New onset seizure: Code(s): R56.9 - Unspecified convulsions Status: Acute DS: Summary Hospital Course Hospital Course: # gI bleed with hematemesis and melena status post EGD with findings of reflux esophagitis, acute gastric and duodenal ulcer.? H pylori testing pending at the time of discharge.? Use of excessive NSAIDs.? Avoid NSAIDs.? PPI. Need follow-up EGD to ensure healing in 2-3 months. Continue PPI b.i.d. #?acute blood loss anemia hemoglobin at 10 lowered down to 8.5 but remains stable from their # hyponatremia chronic # alcohol use: Watch for alcohol withdrawal # hypertension home med hyperlipidemia resume medication # status post left history of seizure back from December 12.? Was placed on Keppra # dVT prophylaxis SCD # status full code Time Spent with Patient Time attestation: Total time spent providing and/or coordinating discharge services: 35 minutes Exam Narrative: APPEARANCE:? No acute distress, nontoxic, resting in bed EYES: EOMI HEENT: Normocephalic, atraumatic, OMM RESPIRATORY: No respiratory distress Clear to auscultation bilaterally with no rhonchi wheezing or rales. CARDIOVASCULAR: Regular rate and rhythm without murmurs rubs or gallops. ABDOMINAL: Soft, nontender, nondistended, no rebound or guarding MUSCULOSKELETAl: Moves all extremities. No clubbing, cyanosis or edema. NEURO: Awake and alert. Following commands, speech normal, no focal deficits SKIN:: Warm, dry. No rashes lesions or abrasions PSYCHIATRIC: Normal affect/mood, DS: Data Data Completed and Pending Pending studies at discharge: Pending at discharge 06/13/22 14:00 Surgical [PTH] Routine Labs on day of discharge: Labs from last 24 hours 06/14/22 06/14/22 06/14/22 06:56 06:56 01:07 WBC 4.8 RBC 2.61 L Hgb 9.2 L 8.5 L Hct 27.4 L 24.6 L MCV 105.0 H MCH 35.2 H MCHC 33.6 RDW 11.9 Plt Count 231 MPV 8.5 Immature Gran % (Auto) 0.2 Neut % (Auto) 58.5 Lymph % (Auto) 24.8 [place] % (Auto) 11.3 H Eos % (Auto) 4.4 Baso % (Auto) 0.8 Lymph # (Auto) 1.19 [place] # (Auto) 0.5 Eos # (Auto) 0.2 Baso # (Auto) 0.0 Abs Immat Gran (auto) 0.01 Absolute Neuts (auto) 2.8 Absolute Nucleated RBC 0.0 Nucleated RBC % 0.0 Sodium 133 L Potassium 4.2 Chloride 101 Carbon Dioxide 27 Anion Gap 5 L BUN 18 D Creatinine 0.90 Estim Creat Clear Calc 77 Estimated GFR > 60 Glucose 97 Calcium 8.2 L Total Bilirubin 1.1 AST 31 ALT 17 Alkaline Phosphatase 70 Total Protein 6.0 L Albumin 3.4 L 06/13/22 18:03 WBC RBC Hgb 9.8 L Hct 28.2 L MCV MCH MCHC RDW Plt Count MPV Immature Gran % (Auto) Neut % (Auto) Lymph % (Auto) [place] % (Auto) Eos % (Auto) Baso % (Auto) Lymph # (Auto) [place] # (Auto) Eos # (Auto) Baso # (Auto) Abs Immat Gran (auto) Absolute Neuts (auto) Absolute Nucleated RBC Nucleated RBC % Sodium Potassium Chloride Carbon Dioxide Anion Gap BUN Creatinine Estim Creat Clear Calc Estimated GFR Glucose Calcium Total Bilirubin AST ALT Alkaline Phosphatase Total Protein Albumin Procedures/Treatments: EGD 06/13/2022: Hiatal reflux esophagitis acute gastric ulcer acute duodenal ulcer. Discharge Plan Disch
== END 2022-06-14 14:15 | disposition home or self-care (01) ==
LOC: ANHED 09:10 → ANH3MEDSUR 06-14 12:30
PROVIDERS: Internal Medicine Gastroenterology; Admitting Provider Internal Medicine; Emergency Provider Emergency Medicine; PCP Family Medicine Sports Medicine; Visit Provider Internal Medicine
PROC: 0DJ08ZZ Inspection of Upper Intestinal Tract, Via Natural or Artificial Opening Endoscopic (ICD-10-PCS; CPT 43235; principal; 2022-06-13 14:00)
DX: K44.9 Diaphragmatic hernia without obstruction or gangrene (principal); K21.00 Gastro-esophageal reflux disease with esophagitis, without bleeding; K25.3 Acute gastric ulcer without hemorrhage or perforation; K26.3 Acute duodenal ulcer without hemorrhage or perforation; E87.1 Hypo-osmolality and hyponatremia; M17.12 Unilateral primary osteoarthritis, left knee; E56.9 Vitamin deficiency, unspecified; M10.9 Gout, unspecified; E78.5 Hyperlipidemia, unspecified; I10 Essential (primary) hypertension; F10.10 Alcohol abuse, uncomplicated; Y90.0 Blood alcohol level of less than 20 mg/100 ml; Z79.1 Long term (current) use of non-steroidal anti-inflammatories (NSAID); Z79.899 Other long term (current) drug therapy; Z82.49 Family history of ischemic heart disease and other diseases of the circulatory system
CPT/HCPCS: 43239; 36415; 80053; 80307; 85014; 85018; 85025; 85610; 85730; 86850; 86900; 86901; 88305; 96360; 96361; 96374; 96375; 99285; A9270; C9113; G0378; J0290; J2704; J3411; J7030; J7120

== ENCOUNTER 2022-08-04 06:42 | Day surgery (SDC) | payer OTHER, SELFPAY ==
[2022-06-20 13:46] VITALS: BMI 24.4
[2022-07-16 11:45] VITALS: BMI 20.3
--- NOTE | 2022-08-04 07:13 | WPDANESEPPF ---
Anes - Initial Pre Proc Eval Procedure: Operation Date: 08/04/22 08:30 Proposed Procedures p Esophagogastroduodenoscopy - Shaquille Hinojosa MD Date/Time: 08/04/22 07:13 Surgeon: Shaquille Hinojosa MD Pre Op Diagnosis: Gastric Ulcer Patient Data Age: 66 Gender: M Height: 2.01 m Weight: 82 kg Allergies Allergy/AdvReac Type Severity Reaction Status Date / Time No Known Allergies Allergy Verified 08/04/22 07:18 Home Medications Medication Instructions Recorded Confirmed Type losartan 100 mg tablet 100 mg PO QAM 07/02/21 08/04/22 History ezetimibe 10 mg tablet 10 mg PO QAM 10/09/21 08/04/22 History metoprolol succinate 50 mg 50 mg PO DAILY 12/09/21 08/04/22 History tablet,extended release 24 hr amlodipine 5 mg tablet 10 mg PO QAM #60 tabs 12/10/21 08/04/22 Rx pantoprazole 40 mg tablet,delayed 40 mg PO Q12HR #60 tabs 06/14/22 08/04/22 Rx release Patient hx anesthesia problems: none Family hx anesthesia problems: none Results Review: All pre-operative results and documents have been reviewed as part of the pre-operative evaluation. [facility] Past Medical History Medical History Alcohol abuse Chronic hyponatremia Gout Hyperlipidemia Hypertension Surgical History Surgical History History of arthroplasty of left knee History of cardiac catheterization History of colonoscopy History of oral surgery Status post total left knee replacement Family History Family History Father Skin cancer Hypertension Mother Acute myocardial infarction Cerebrovascular accident Heart disease Social History Social History Social History: Surrogate medical decision maker: Janell Ivan, spouse. Code status: Full code. Smoking status: Never smoker Second hand tobacco smoke exposure: No Alcohol intake: current Drinks per week: 56 Alcohol use details: Around 8 beers a day. Substance use: never Substance use type: does not use Lack of Transportation: No Lack of Food: Never True Current Housing: I Have Housing Concerned About Future Housing: No Difficulty Paying Gas/Electric Bills: No Difficulty Paying for Meds: No Currently Unemployed: No Education: High School Diploma/GED Difficulty w/ Childcare or Family Care: No Living arrangements: with family Additional living arrangements comments: The patient lives with his in [place]. 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 Spiritual care concerns: No Anes - Eval Final PreProcedure Day of Procedure 08/04/22 07:13 Patient weight: normal Heart: regular rate and rhythm Lungs: clear to auscultation and normal air movement Airway: Mallampati scale class II Neurological: alert and oriented Last oral intake: >/= 8 hours ASA classification: III Emergent: no Anesthetic plan: proceed Anesthesia type and monitoring: general GIVS and standard monitoring Results Review: All pre-operative results and documents have been reviewed as part of the pre-operative evaluation. Informed Consent: The patient's anesthetic plan and its attendant risks and benefits were discussed with the patient/family/POA. Questions were solicited and answers provided to the satisfaction of the patient/family/POA.
[2022-08-04 07:25] VITALS: BMI 24.6
[2022-08-04 07:26] VITALS: BP 153/90; PULSE 66; RESP 16; TEMP 37.2; O2SAT 100
--- NOTE | 2022-08-04 07:28 | PM.HPGS ---
History of Present Illness History of Present Illness Consent: Risks, benefits, and alternatives have been discussed and questions answered. Patient agrees to proceed with procedure. Chief complaint: Gastric Ulcer Narrative: Triston Ivan is a 66 year old male Presents for follow-up EGD. Patient reports feeling good with no additional heartburn. No indigestion while being maintained on Pantoprazole 40mg p.o. daily. patient currently denies abdominal pain. He has had no bleeding. Family history noncontributory. Patient presents today for follow-up exam to document healing of previously identified gastric ulcer. Review of Systems Review of Systems: Review of systems noncontributory. [facility] Past Medical History Medical History Alcohol abuse Chronic hyponatremia Gout Hyperlipidemia Hypertension Surgical History Surgical History History of arthroplasty of left knee History of cardiac catheterization History of colonoscopy History of oral surgery Status post total left knee replacement Family History Family History Father Skin cancer Hypertension Mother Acute myocardial infarction Cerebrovascular accident Heart disease Social History Social History Social History: Surrogate medical decision maker: Janell Ivan, spouse. Code status: Full code. Smoking status: Never smoker Second hand tobacco smoke exposure: No Alcohol intake: current Drinks per week: 56 Alcohol use details: Around 8 beers a day. Substance use: never Substance use type: does not use Lack of Transportation: No Lack of Food: Never True Current Housing: I Have Housing Concerned About Future Housing: No Difficulty Paying Gas/Electric Bills: No Difficulty Paying for Meds: No Currently Unemployed: No Education: High School Diploma/GED Difficulty w/ Childcare or Family Care: No Living arrangements: with family Additional living arrangements comments: The patient lives with his in [place]. 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: No Meds Home Medications and Allergies Home Medications Medication Instructions Recorded Confirmed Type losartan 100 mg tablet 100 mg PO QAM 07/02/21 08/04/22 History ezetimibe 10 mg tablet 10 mg PO QAM 10/09/21 08/04/22 History metoprolol succinate 50 mg 50 mg PO DAILY 12/09/21 08/04/22 History tablet,extended release 24 hr amlodipine 5 mg tablet 10 mg PO QAM #60 tabs 12/10/21 08/04/22 Rx pantoprazole 40 mg tablet,delayed 40 mg PO Q12HR #60 tabs 06/14/22 08/04/22 Rx release Allergies Allergy/AdvReac Type Severity Reaction Status Date / Time No Known Allergies Allergy Verified 08/04/22 07:18 Vital Signs Vital Signs - 24 hr 08/04/22 07:26 Temperature 99 F Pulse Rate 66 Respiratory Rate 16 Blood Pressure 153/90 H Pulse Oximetry 100 Oxygen Delivery Room Air Exam Narrative: Physical exam reveals patient to be alert. Vital signs stable. HEENT exam is unremarkable. Patient is anicteric. Lungs are clear to auscultation and percussion. Heart is without murmur or extra sounds. Abdomen bowel sounds are present soft nontender with no organomegaly. Digital external rectal exam is normal. Assessment and Plan Assessment and plan (1) Peptic ulcer disease: Code(s): K27.9 - Peptic ulcer, site unspecified, unspecified as acute or chronic, without hemorrhage or perforation Status: Acute Assessment and Plan: Patient with prior history gastric ulcer and significant erosive esophagitis. Patient doing well on pantoprazole 40mg p.o. daily. Patient to have follow-up EGD today to document healing. Because of underlying acid reflux vikki
[2022-08-04] MEDS: LACTATED RINGERS 1,000 ML 150 ML IV CONT (07:37)
[2022-08-04] MEDS: AMPICILLIN 2 GM/NS 100 ML 2 GM/100 ML BAG IVPB (08:07)
[2022-08-04 08:22] VITALS: BP 134/66; PULSE 72; RESP 20; O2SAT 100
[2022-08-04 08:32] VITALS: BP 137/77; PULSE 58; RESP 20; O2SAT 100
[2022-08-04 08:42] VITALS: BP 155/80; PULSE 59; RESP 20; O2SAT 100
--- NOTE | 2022-08-04 09:15 | WPDANESPN ---
Anes - Prog Note Post-Op Date/Time: 08/04/22 09:15 Cardiovascular status: normal Respiratory status: normal Airway patency: baseline Mental status: baseline Post-Op hydration status: normal Vital Signs: Last Vital Signs Temp 37.2 C 08/04/22 07:26 Pulse 59 L 08/04/22 08:42 Resp 20 08/04/22 08:42 BP 155/80 H 08/04/22 08:42 Pulse Ox 100 08/04/22 08:42 O2 Del Method Room Air 08/04/22 08:42 Pain Score (VAS): 0 I/O: Intake & Output 08/03/22 08/04/22 08/04/22 23:59 07:59 15:59 Intake Total 500 Balance 500 Post-procedural complaints: none Patient Feedback: Patient satisfied with anesthetic care. Other Findings: Patient vital signs back to baseline. Patient denies nausea and vomiting. Patient's pain under control. Patient OK for discharge.
== END 2022-08-04 08:49 | disposition home or self-care (01) ==
PROVIDERS: PCP Family Medicine Sports Medicine; Visit Provider Internal Medicine Gastroenterology
PROC: 0DJ08ZZ Inspection of Upper Intestinal Tract, Via Natural or Artificial Opening Endoscopic (ICD-10-PCS; CPT 43235; principal; 2022-08-04 08:30)
DX: K27.9 Peptic ulcer, site unspecified, unspecified as acute or chronic, without hemorrhage or perforation (principal)
CPT/HCPCS: 43450; 43239

== ENCOUNTER 2023-10-29 14:32 | Outpatient (CLI) | payer OTHER, SELFPAY ==
--- NOTE | ~2023-10-29 | XR_ITS ---
XR knee LT 3V 10/29/2023 15:04 Indication: Left knee arthroplasty Procedure: 3 views left knee Comparison: Comparison to multiple prior studies sequentially, with oldest reviewed study dated 11/20. Findings: There is a left total knee arthroplasty. Prosthesis well seated. No significant alteration in appearance compared with prior studies. Prosthesis well seated. No evidence for loosening. No acut e fracture or traumatic malalignment. Impression: 1: No acute bone or joint abnormality. Reviewed, dictated and finalized at location B. Impression: 1: No acute bone or joint abnormality.
== END 2023-10-29 14:33 | disposition home or self-care (01) ==
PROVIDERS: PCP Family Medicine; Visit Provider Orthopaedic Surgery
DX: Z96.652 Presence of left artificial knee joint (principal)
CPT/HCPCS: 73562

== ENCOUNTER 2024-03-09 16:00 | Emergency (ER) | payer OTHER, SELFPAY ==
[2024-03-09] VITALS (9 sets, daily range): BP systolic 139–173; BP diastolic 86–94; PULSE 69–135; RESP 16–18; TEMP 36.6; O2SAT 99–100
--- NOTE | ~2024-03-09 | CT_ITS ---
EXAMINATION: CT brain wo con DATE: 03/09/2024 17:22 INDICATION: Vertigo TECHNIQUE: Computed tomography (CT) of the head was performed without intravenous contrast. Sagittal and coronal reconstructions were performed. The mA was adjusted according to patient size. Iterative reconstruction technique was employed. The dose-length product was 605.33 mGy-cm. COMPARISON: head CT dated 12/08/21 and brain MR dated 12/09/2021 FINDINGS: No acute intracranial hemorrhage, acute infarction or abnormal extra axial fluid collection. There is moderate scattered white matter hypoattenuation consistent with chronic small vessel ischemic diseas e. Symmetric prominence of the sulci and subarachnoid spaces overlying the convexities consistent wit h mild age-appropriate diffuse cerebral volume loss. Ventricles are normal and symmetric. No mass/ma ss effect. Changes of bilateral intraocular lens replacement. The orbits, paranasal sinuses and masto id air cells are normal. IMPRESSION: 1. No acute cranial process. 2. Age related changes including mild diffuse volume loss and moderate scattered white matter hypoatt enuation consistent with chronic small vessel ischemic disease. Reviewed, dictated and finalized at location A. GN AGENT IMPRESSION: 1. No acute cranial process. 2. Age related changes including mild diffuse volume loss and moderate scattere d white matter hypoattenuation consistent with chronic small vessel ischemic di sease.
--- NOTE | 2024-03-09 16:22 | ECG_ITS ---
Test Date: 2024-03-09 16:44:26 Measurements Intervals [place] Rate: 74 P: 26 RI: 193 QRS: -21 QRSD: 170 T: 50 QT: 407 QTc: 452 Interpretive Statements SINUS RHYTHM BORDERLINE LEFT AXIS DEVIATION [QRS AXIS < -20] RIGHT BUNDLE BRANCH BLOCK [120+ ms QRS DURATION, UPRIGHT V1, 40+ ms S IN I/aVL/V4/V5/V6] No previous ECG available for comparison Electronically Signed On 03-10-2024 15:50:43 MICROPHONE OPERATOR by Gustavo Santos M.D.
[2024-03-09 17:11] LABS: Basophils Percent Auto 0.5 % (0.2-1.2); Eosinophils Absolute Auto 0.1 K/mm3 (0-0.3); Hematocrit 35.5 % (42.0-52.0); Hemoglobin 12.8 g/dL (14.0-18.0); Immature Granulocyte Absolute 0.04 K/mm3 (0.00-0.031); Immature Granulocyte Percent A 0.5 % (0-0.5); Lymphocytes Absolute Auto 1.46 K/mm3 (0.9-3.2); Lymphocytes Percent Auto 16.9 % (18.3-44.2); Mean Corpuscular HGB Conc 36.1 g/dl (32-36); Mean Corpuscular Hemoglobin 38.2 pg (26-34); Mean Platelet Volume 8.6 fl (7.4-10.4); Monocytes Absolute Auto 1.1 K/mm3 (0.1-0.6); Monocytes Percent Auto 12.4 % (2.6-8.5); Neutrophils Absolute Auto 5.9 K/mm3 (1.3-6.7); Neutrophils Percent Auto 68.7 % (45.5-73.1); Platelet Count Result 262 k/mm3 (150-375); Red Blood Count 3.35 M/mm3 (4.6-6.20); Red Cell Distribution Width 11.4 % (11.5-14.5); White Blood Count 8.6 K/mm3 (4.5-10.0)
--- NOTE | 2024-03-09 17:15 | ED.GENADULT ---
HPI - General Adult General Chief complaint: Dizziness Stated complaint: dizziness Time Seen by Provider: 03/09/24 16:40 History of Present Illness HPI narrative: 68-year-old male presenting to the emergency department for evaluation for intermittent dizziness. Patient reports he has had intermittent dizziness for approximately 1 month and has reported this to his primary care physician. Patient does not feel that he is going to have loss consciousness but feels that is more of a movement sensation. Patient is also taking iron pills and noticed he was having some dark stools. Patient does have a prior history of gastric ulcers and has been followed by GI. Patient reports he has had dark stools but they are formed. Related Data Home Medications ?Medication ?Instructions ?Recorded ?Confirmed ?Last Taken ?Type losartan 100 mg tablet 100 mg PO QAM 07/02/21 10/30/23 08/04/22 History ezetimibe 10 mg tablet 10 mg PO QAM 10/09/21 10/30/23 08/04/22 History metoprolol succinate 50 mg 50 mg PO DAILY 12/09/21 10/30/23 08/04/22 History tablet,extended release 24 hr Allergies Allergy/AdvReac Type Severity Reaction Status Date / Time No Known Allergies Allergy Verified 03/09/24 16:00 Review of Systems Review of Systems: All systems reviewed & are unremarkable except as noted in HPI and below PMFSH Past Medical History Medical History Alcohol abuse Chronic hyponatremia Gout Hyperlipidemia Hypertension Surgical History Surgical History History of arthroplasty of left knee History of cardiac catheterization History of colonoscopy History of oral surgery Status post total left knee replacement Family History Family History Father Skin cancer Hypertension Mother Acute myocardial infarction Cerebrovascular accident Heart disease Social History Social History Social History: Surrogate medical decision maker: Janell Moncho, spouse. Code status: Full code. Smoking status: Never smoker Second hand tobacco smoke exposure: No Alcohol intake: current Drinks per week: 56 Alcohol use details: Around 8 beers a day. Substance use: never Substance use type: does not use Lack of Transportation: No Lack of Food: Never True Current Housing: I Have Housing Concerned About Future Housing: No Difficulty Paying Gas/Electric Bills: No Difficulty Paying for Meds: No Currently Unemployed: No Education: High School Diploma/GED Difficulty w/ Childcare or Family Care: No Living arrangements: with family Additional living arrangements comments: The patient lives with his in [place]. 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 HEAD: normocephalic, atraumatic. EYES: PERRLA/EOMI, conjunctivae clear. NOSE: Normal no drainage EARS:TMS clear with good light reflex. THROAT: Pharynx clear, no exudate. NECK: Supple. No adenopathy, no masses. RESPIRATORY: Airway patent, respirations nonlabored. Clear to auscultation bilaterally, no rales, rhonchi, wheezing. CARDIOVASCULAR: Regular rate and rhythm without murmurs rubs or gallops. ABDOMINAL: Soft, nontender, nondistended, normal bowel sounds MUSCULOSKELETAL: Moves all extremities. Strength/ROM intact, No edema, No calf tenderness. NEURO: Alert. Cranial nerves II through XII intact. Good gait. Good coordination SKIN: Warm, dry. Normal Color Rectal exam: Hemoccult negative with the digital rectal exam Course Vital Signs Vital signs: Vital Signs Temperature 97.8 F 03/09/24 16:01 Pulse Rate 77 03/09/24 16:01 Respiratory Rate 18 03/09/24 16:01 Blood Pressure 156/86 H 03/09/24 16:01 Pulse Oximetry 100 03/09/24 16:01 Oxygen Delivery Room Air 03/09/24 16:01 Temperature 97.8 F 03/09/24 16:01 Pulse Rate 95 03/09/24 20:58 Respiratory Rate 16 03/09/24 18:56 Blood Pressure 139/86 03/09/24 20:58 Pulse Oximetry 99 03/09/24 18:56 Oxygen Delivery Room Air 03/09/24 16:01 Medical Decision Making [facility] Narrative Medical decision making narrative: 68-year-old male present to the emergency department for evaluation for dizziness. Patient is also reporting dark stool but he was Hemoccult negative on the digital rectal exam. Patient was orthostatic with both sitting and standing with significant increases in his heart rate 83, 105 and 135. Patient was treated with a L of IV fluid along with meclizine. CT head was ordered. head CT was negative for acute intracranial abnormality. Patient was treated with 2 L IV fluids. On re-evaluation patient had no complaint of dizziness and patient had normal orthostatic vitals. Patient was able to ambulate to the bathroom without issue. Suspect vertigo causing decreased p.o. intake and subsequent dehydration and orthostatic hypotension. Patient will be discharged home with meclizine with instructions of close follow-up with his primary care physician. Patient was also strongly encouraged to drink fluids. Differential Diagnosis Differential Diagnosis: Peripheral vertigo, central vertigo, dehydration, orthostatic hypotension, viral etiology Vital Signs Vital Signs: Vital Signs Temperature 97.8 F 03/09/24 16:01 Pulse Rate 77 03/09/24 16:01 Respiratory Rate 18 03/09/24 16:01 Blood Pressure 156/86 H 03/09/24 16:01 Pulse Oximetry 100 03/09/24 16:01 Oxygen Delivery Room Air 03/09/24 16:01 Temperature 97.8 F 03/09/24 16:01 Pulse Rate 95 03/09/24 20:58 Respiratory Rate 16 03/09/24 18:56 Blood Pressure 139/86 03/09/24 20:58 Pulse Oximetry 99 03/09/24 18:56 Oxygen Delivery Room Air 03/09/24 16:01 Lab Data Lab results reviewed: Yes I reviewed the patient's lab results. 03/09/24 17:00 03/09/24 17:00 Labs: Lab Results 03/09/24 Range/Units 17:00 WBC 8.6 (4.5-10.0) K/mm3 RBC 3.35 L (4.6-6.20) M/mm3 Hgb 12.8 L D (14.0-18.0) g/dL Hct 35.5 L (42.0-52.0) % MCV 106.0 H (80-100) fl MCH 38.2 H (26-34) pg MCHC 36.1 H (32-36) g/dl RDW 11.4 L (11.5-14.5) % Plt Count 262 (150-375) k/mm3 MPV 8.6 (7.4-10.4) fl Immature Gran % (Auto) 0.5 (0-0.5) % Neut % (Auto) 68.7 (45.5-73.1) % Lymph % (Auto) 16.9 L (18.3-44.2) % Wallace % (Auto) 12.4 H (2.6-8.5) % Eos % (Auto) 1.0 (0-4.4) % Baso % (Auto) 0.5 (0.2-1.2) % Lymph # (Auto) 1.46 (0.9-3.2) K/mm3 Wallace # (Auto) 1.1 H (0.1-0.6) K/mm3 Eos # (Auto) 0.1 (0-0.3) K/mm3 Baso # (Auto) 0.0 (0.0-0.1) K/mm3 Abs Immat Gran (auto) 0.04 H (0.00-0.031) K/mm3 Absolute Neuts (auto) 5.9 (1.3-6.7) K/mm3 Absolute Nucleated RBC 0.000 (0.0-0.012) K/mm3 Nucleated RBC % 0.0 (0.0-0.2) % Platelet Estimate Adequate (Adequate) Macrocytosis 1+ (NORMAL) Schistocytes None seen PT 12.3 (11.1-14.7) Seconds INR 0.9 APTT 28.1 (22.3-36.8) Seconds Sodium 122 L (137-145) mmol/L Potassium 4.1 (3.4-5.0) mmol/L Chloride 91 L (98-107) mmol/L Carbon Dioxide 25 (22-30) mmol/L Anion Gap 6 (4-12) mmol/L BUN 8 L D (9-20) mg/dL Creatinine 0.90 (0.7-1.3) mg/dL Estim Creat Clear Calc 75 ml/min Estimated GFR > 60 (59 - ) Glucose 104 (65-110) mg/dL Calcium 9.2 (8.4-10.2) mg/dL Total Bilirubin 1.7 H (0.2-1.3) mg/dL AST 43 (17-59) U/L ALT 20 (6-50) U/L Alkaline Phosphatase 86 (38-126) U/L Total Protein 8.0 (6.3-8.2) g/dL Albumin 4.9 (3.5-5.1) g/dL Blood Type O Negative Antibody Screen Negative Imaging Data Radiologist's impression: Impressions Head CT 03/09/24 17:24 IMPRESSION: 1. No acute cranial process. 2. Age related changes including mild diffuse volume loss and moderate scattered white matter hypoattenuation consistent with chronic small vessel ischemic disease. Discharge Plan Discharge Clinical Impression: Vertigo, Orthostatic hypotension Patient Disposition: Home, Self-Care Condition: Stable Instructions: Antibiotic Form, Vertigo (ED), Benign Paroxysmal Positional Vertigo (ED) Additional Instructions: meclizine as needed for vertigo control. drink plenty of fluids. Have close follow-up with your primary care physician. If you have any worsening symptoms then please call or return to the emergency department. Patient Language: Austrian Prescriptions: New meclizine 25 mg tablet 25 mg PO BID PRN (Reason: dizziness) Qty: 20 0RF No Action losartan 100 mg tablet 100 mg PO QAM ezetimibe 10 mg Tablet 10 mg PO QAM pantoprazole 40 mg Tablet,Delayed Release (Dr/Ec) 40 mg PO Q12HR Qty: 60 0RF metoprolol succinate 50 mg tablet extended release 24 hr 50 mg PO DAILY amlodipine 5 mg tablet 10 mg PO QAM Qty: 60 0RF Follow-up/Referrals: Piper,Herbert Ambrose MD [Primary Care Provider] -
[2024-03-09 17:23] LABS: Alanine Aminotransferase 20 U/L (6-50); Albumin Level 4.9 g/dL (3.5-5.1); Alkaline Phosphatase 86 U/L (38-126); Anion Gap 6 mmol/L (4-12); Aspartate Amino Transferase 43 U/L (17-59); Bilirubin,Total 1.7 mg/dL (0.2-1.3); Blood Urea Nitrogen 8 mg/dL (9-20); Calcium 9.2 mg/dL (8.4-10.2); Carbon Dioxide 25 mmol/L (22-30); Chloride 91 mmol/L (98-107); Estimated CRCL calculation 75 ml/min; Estimated Glomerular Filt Rate > 60; Glucose 104 mg/dL (65-110); Potassium 4.1 mmol/L (3.4-5.0); Sodium 122 mmol/L (137-145)
[2024-03-09 17:31] LABS: INR 0.9; Partial Thromboplastin Time 28.1 Seconds (22.3-36.8); Prothrombin Time 12.3 Seconds (11.1-14.7)
[2024-03-09] MEDS: MECLIZINE HCL 25 MG TABLET PO (17:35)
[2024-03-09] MEDS: SODIUM CHLORIDE 0.9% IV 1,000 ML 999 ML IV CONT ×2 (17:35→19:35)
[2024-03-09 17:45] LABS: Platelet Estimate Adequate (Adequate); Schistocytes None Seen
[2024-03-09 17:46] LABS: Macrocytosis 1+ (NORMAL)
--- NOTE | 2024-03-09 18:52 | PC.NURSE ---
Patient alert/oriented-reports Dizziness has resolved. IVF continue infusing
== END 2024-03-09 21:28 | disposition home or self-care (01) ==
PROVIDERS: Emergency Provider Emergency Medicine; PCP Family Medicine
DX: R42 Dizziness and giddiness (principal); I95.1 Orthostatic hypotension; I10 Essential (primary) hypertension; E78.5 Hyperlipidemia, unspecified; Z96.652 Presence of left artificial knee joint
CPT/HCPCS: 36415; 70450; 80053; 85025; 85610; 85730; 86850; 86900; 86901; 93005; 96360; 96361; 99284; A9270; J7030

== ENCOUNTER 2024-08-16 13:42 | Outpatient (CLI) | payer MEDICARE, SELFPAY ==
--- NOTE | ~2024-08-16 | XR_ITS ---
AP view of the pelvis and AP and lateral views of the left hip Clinical history: Pain Findings: No acute fracture or dislocation is seen. Osseous alignment is anatomic. Bilateral hip and SI joint spaces are preserved. Soft tissues are unremarkable. Impression: No significant abnormality is seen. Reviewed, dictated and finalized at location . Impression: No significant abnormality is seen.
--- NOTE | ~2024-08-16 | XR_ITS ---
Left Knee Technique: AP, lateral, and sunrise views were obtained. Clinical History: Arthroplasty COMPARISON: 10/29/2023 Findings: No fracture or dislocation is seen. Stable left knee arthroplasty. Soft tissues are unremar kable. No joint effusion is seen. Impression: No acute abnormality. Stable left knee arthroplasty. Reviewed, dictated and finalized at location . Impression: No acute abnormality. Stable left knee arthroplasty.
[2024-08-16 14:28] LABS: CRP < 0.5 mg/dL (<1.0)
[2024-08-16 14:49] LABS: Erythrocyte Sedimentation Rate 14 mm/hr (0-20)
== END 2024-08-16 13:43 | disposition home or self-care (01) ==
PROVIDERS: PCP Family Medicine; Visit Provider Physician Assistant Surgical
DX: M25.552 Pain in left hip (principal); T84.84XA Pain due to internal orthopedic prosthetic devices, implants and grafts, initial encounter; Z96.652 Presence of left artificial knee joint
CPT/HCPCS: 36415; 73502; 73562; 85652; 86140

== ENCOUNTER 2024-11-03 01:29 | Day surgery (SDC) | payer MEDICARE, SELFPAY ==
[2024-10-18 14:37] VITALS: BMI 25.1
[2024-11-03 07:27] VITALS: BP 181/92; PULSE 65; RESP 18; TEMP 36.7; O2SAT 100
[2024-11-03] MEDS: LACTATED RINGERS 1,000 ML 150 ML IV CONT (07:34)
--- NOTE | 2024-11-03 07:57 | WPDANESEPPF ---
Anes - Initial Pre Proc Eval Procedure: Operation Date: 11/03/24 08:45 Proposed Procedures p Esophagogastroduodenoscopy - Kimani Benson MD Date/Time: 11/03/24 07:57 Surgeon: Kimani Benson MD Pre Op Diagnosis: Anemia, unspecified Patient Data Age: 68 Gender: M Height: 1.83 m Weight: 84.8 kg Last Vital Signs Temp 36.7 C 11/03/24 07:27 Pulse 65 11/03/24 07:27 Resp 18 11/03/24 07:27 BP 181/92 H 11/03/24 07:27 Pulse Ox 100 11/03/24 07:27 O2 Del Method Room Air 11/03/24 07:27 Allergies Allergy/AdvReac Type Severity Reaction Status Date / Time No Known Allergies Allergy Verified 10/18/24 14:34 Home Medications ?Medication ?Instructions ?Recorded ?Confirmed ?Type losartan 100 mg tablet 100 mg PO QAM 07/02/21 11/03/24 History ezetimibe 10 mg tablet 10 mg PO QAM 10/09/21 11/03/24 History metoprolol succinate 50 mg 50 mg PO DAILY 12/09/21 11/03/24 History tablet,extended release 24 hr furosemide 40 mg tablet 20 mg PO QAM 08/16/24 11/03/24 History amlodipine 5 mg tablet 5 mg PO QAM 10/18/24 11/03/24 History pantoprazole 40 mg tablet,delayed 40 mg PO DAILY 10/18/24 11/03/24 History release Patient hx anesthesia problems: none Family hx anesthesia problems: none Results Review: All pre-operative results and documents have been reviewed as part of the pre-operative evaluation. [facility] Past Medical History Medical History (Updated 10/18/24 @ 10:41 by Columba Morales) Alcohol abuse Chronic hyponatremia Gout Hyperlipidemia Hypertension Surgical History Surgical History History of cardiac catheterization History of oral surgery History of arthroplasty of left knee History of colonoscopy Status post total left knee replacement Family History Family History Father Skin cancer Hypertension Mother Acute myocardial infarction Cerebrovascular accident Heart disease Social History Social History (Reviewed 10/17/24 @ 08:33 by Rhonda De Dios [facility] Social History: Surrogate medical decision maker: Janell Ivan, spouse. Code status: Full code. Smoking status: Never smoker Second hand tobacco smoke exposure: No Alcohol intake: current Drinks per week: 56 Alcohol use details: Around 8 beers a day. Substance use: never Substance use type: does not use Do You Feel Safe in your Home?: Yes Lack of Transportation: No Lack of Food: Never True Current Housing: I Have Housing Concerned About Future Housing: No Difficulty Paying Gas/Electric Bills: No Difficulty Paying for Meds: No Currently Unemployed: No Education: High School Diploma/GED Difficulty w/ Childcare or Family Care: No Living arrangements: with family Additional living arrangements comments: The patient lives with his in [place]. 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 Informed Consent: The patient's anesthetic plan and its attendant risks and benefits were discussed with the patient/family/POA. Questions were solicited and answers provided to the satisfaction of the patient/family/POA.
[2024-11-03 08:42] LABS: Anion Gap 7 mmol/L (4-12); Blood Urea Nitrogen 11 mg/dL (9-20); Calcium 9.7 mg/dL (8.4-10.2); Carbon Dioxide 28 mmol/L (22-30); Chloride 98 mmol/L (98-107); Estimated CRCL calculation 66 ml/min; Estimated Glomerular Filt Rate > 60; Glucose 106 mg/dL (65-110); Potassium 4.7 mmol/L (3.4-5.0); Sodium 133 mmol/L (137-145)
--- NOTE | 2024-11-03 09:36 | PM.HPGS ---
History of Present Illness History of Present Illness Consent: Risks, benefits, and alternatives have been discussed and questions answered. Patient agrees to proceed with procedure. Chief complaint: Anemia, unspecified Narrative: Triston Ivan is a 68 year old male with gastric ulcers 2022, repeat EGD few months showed resolution of ulcers, still using ppi. Denies any new gib or abdominal pain Review of Systems Review of Systems: All systems reviewed & are unremarkable except as noted in HPI and below PMFSH Past Medical History Medical History (Updated 10/18/24 @ 10:41 by Columba Morales) Alcohol abuse Chronic hyponatremia Gout Hyperlipidemia Hypertension Surgical History Surgical History History of cardiac catheterization History of oral surgery History of arthroplasty of left knee History of colonoscopy Status post total left knee replacement Family History Family History Father Skin cancer Hypertension Mother Acute myocardial infarction Cerebrovascular accident Heart disease Social History Social History Social History: Surrogate medical decision maker: Janell Ivan, spouse. Code status: Full code. Smoking status: Never smoker Second hand tobacco smoke exposure: No Alcohol intake: current Drinks per week: 56 Alcohol use details: Around 8 beers a day. Substance use: never Substance use type: does not use Do You Feel Safe in your Home?: Yes Lack of Transportation: No Lack of Food: Never True Current Housing: I Have Housing Concerned About Future Housing: No Difficulty Paying Gas/Electric Bills: No Difficulty Paying for Meds: No Currently Unemployed: No Education: High School Diploma/GED Difficulty w/ Childcare or Family Care: No Living arrangements: with family Additional living arrangements comments: The patient lives with his in [place]. 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 Spiritual care concerns: No Meds Home Medications and Allergies Home Medications ?Medication ?Instructions ?Recorded ?Confirmed ?Type losartan 100 mg tablet 100 mg PO QAM 07/02/21 11/03/24 History ezetimibe 10 mg tablet 10 mg PO QAM 10/09/21 11/03/24 History metoprolol succinate 50 mg 50 mg PO DAILY 12/09/21 11/03/24 History tablet,extended release 24 hr furosemide 40 mg tablet 20 mg PO QAM 08/16/24 11/03/24 History amlodipine 5 mg tablet 5 mg PO QAM 10/18/24 11/03/24 History pantoprazole 40 mg tablet,delayed 40 mg PO DAILY 10/18/24 11/03/24 History release Allergies Allergy/AdvReac Type Severity Reaction Status Date / Time No Known Allergies Allergy Verified 10/18/24 14:34 Vital Signs Vital Signs - 24 hr 11/03/24 07:27 Temperature 98.0 F Pulse Rate 65 Respiratory Rate 18 Blood Pressure 181/92 H Pulse Oximetry 100 Oxygen Delivery Room Air Exam Const: General: comfortable and no acute distress HENMT: Face/Nose/Sinus: Normal nares present Eyes: General: appearance normal, both eyes and all related structures Neck: Neck: no JVD Resp: Auscultation: clear to auscultation bilaterally Cardio: Rate: regular rate Rhythm: regular rhythm GI: Inspection: non-distended GI Palp: Yes Soft to palpation Skin: General skin exam: normal color Neuro: Speech: normal speech Extrem: General: normal to inspection Psych: Mental Status: mental status grossly normal Assessment and Plan Assessment and plan (1) Peptic ulcer disease: Code(s): K27.9 - Peptic ulcer, site unspecified, unspecified as acute or chronic, without hemorrhage or perforation Status: Acute Assessment and Plan: egd, currently he is asymptomatic
[2024-11-03 09:48] VITALS: BP 137/80; PULSE 71; RESP 19; O2SAT 100
[2024-11-03 09:58] VITALS: BP 147/82; PULSE 71; RESP 18; O2SAT 100
[2024-11-03 10:08] VITALS: BP 150/82; PULSE 63; RESP 16; O2SAT 100
== END 2024-11-03 10:12 | disposition home or self-care (01) ==
PROVIDERS: Anesthesiology; PCP Family Medicine; Referring Provider Nurse Practitioner; Visit Provider Internal Medicine Gastroenterology
PROC: 0DJ08ZZ Inspection of Upper Intestinal Tract, Via Natural or Artificial Opening Endoscopic (ICD-10-PCS; CPT 43235; principal; 2024-11-03 08:45)
DX: D64.9 Anemia, unspecified (principal); K44.9 Diaphragmatic hernia without obstruction or gangrene; E78.5 Hyperlipidemia, unspecified; I10 Essential (primary) hypertension; E87.1 Hypo-osmolality and hyponatremia; Z98.890 Other specified postprocedural states; Z98.61 Coronary angioplasty status; Z87.11 Personal history of peptic ulcer disease; Z84.0 Family history of diseases of the skin and subcutaneous tissue; Z82.49 Family history of ischemic heart disease and other diseases of the circulatory system
CPT/HCPCS: 43235; 36415; 80048; J2003; J2704; J7120